=== PATIENT | female | born 1980 | race Caucasian/White ===

== ENCOUNTER 2024-06-11 13:45 | Inpatient (IN) ==
[2024-06-11 14:30] LABS: Basophils # (auto) 0.03 K/uL (0.00-0.20); Basophils % (auto) 0.7 %; Eosinophils # (auto) 0.02 K/uL (0.00-0.50); Eosinophils % (auto) 0.5 %; Hematocrit (blood only) 34.6 % (37.0-47.0); Hemoglobin 11.2 g/dl (12.0-16.0); Immature Granulocytes # (auto) 0.01 K/uL (0.01-0.20); Immature Granulocytes % (auto) 0.2 %; Lymphocytes # (auto) 1.46 K/uL (1.20-3.40); Mean Corpuscular Hemoglobin 27.6 pg (25.0-34.0); Mean Corpuscular Hgb Conc 32.4 g/dL (32.0-36.0); Mean Corpuscular Volume 85.2 fL (80.0-100.0); Mean Platelet Volume 9.9 fL (9.4-12.4); Monocytes # (auto) 0.31 K/uL (0.11-0.59); Monocytes % (auto) 7.2 %; Neutrophils # (auto) 2.46 K/uL (1.40-6.50); Neutrophils % (auto) 57.4 %; Platelet Count 254 K/uL (130-400); RDW Coefficient of Variation 14.9 % (11.5-14.5); RDW Standard Deviation 45.7 fL (36.4-46.3); Red Blood Count 4.06 M/uL (4.20-5.40); White Blood Count 4.29 K/ul (4.8-10.8)
[2024-06-11 14:47] LABS: Albumin Globulin Ratio 1.4 (0.9-2); BUN Creatinine Ratio 9.9 (10-20); Bilirubin,Total 0.4 mg/dl (0.2-1.0); Calcium 8.9 mg/dl (8.6-10.3); Creatinine Clr Calc Pharmacy 66.6 ml/min; Globulin 2.9 gm/dl (2.5-4.0); Potassium 3.7 mmol/L (3.5-5.1); Total Protein 6.9 gm/dl (6.0-8.3)
[2024-06-11 15:14] LABS: Adenovirus PCR Not Detected (NotDetected); Bordetella parapertussis PCR Not Detected (NotDetected); Bordetella pertussis PCR Not Detected (NotDetected); Chlamydia pneumoniae PCR Not Detected (NotDetected); Coronavirus 229E PCR Not Detected (NotDetected); Coronavirus CoV-2 (COVID19)PCR Not Detected (NotDetected); Coronavirus HKU1 PCR Not Detected (NotDetected); Coronavirus NL63 PCR Not Detected (NotDetected); Coronavirus OC43PCR Not Detected (NotDetected); Human Metapneumovirus PCR Not Detected (NotDetected); Influenza A PCR Not Detected (NotDetected); Influenza B PCR Not Detected (NotDetected); Mycoplasma pneumoniae PCR Not Detected (NotDetected); Parainfluenza Virus 1 PCR Not Detected (NotDetected); Parainfluenza Virus 2 PCR Not Detected (NotDetected); Parainfluenza Virus 3 PCR Not Detected (NotDetected); Parainfluenza Virus 4 PCR Not Detected (NotDetected); Respiratory Syncytial VirusPCR Not Detected (NotDetected); Rhinovirus/Enterovirus PCR Not Detected (NotDetected)
[2024-06-11] MEDS: ONDANSETRON INJ 2 MG/ML 2 ML VIAL IV STA ×2 (15:24→18:19)
[2024-06-11] MEDS: SODIUM CHLORIDE 0.9% 1,000 ML IV ONE ×2 (15:24→16:28)
--- NOTE | 2024-06-11 15:42 | Emergency Department Note ---
Impression & Plan Diffuse abdominal pain, Acute dehydration, Vomiting and diarrhea, Hypertension ED Provider Note NAME: FIOR TAVAREZ AGE: 44 SEX: F : 1980 ARRIVES VIA: Walk-In INFORMANT: [Patient] ED PROVIDER(S): [Wai Rojas MD] CHIEF COMPLAINT: Illness HISTORY OF PRESENT ILLNESS: The patient is a 44-year-old female who states that 3 days ago, she had raw tuna. By the time she got home, she had abdominal cramps, she developed vomiting and diarrhea. This has continued throughout the weekend, she cannot keep anything down orally. She presents for evaluation. She has noticed some ongoing left upper quadrant abdominal cramps. She has not had blood in the vomit or the diarrhea. She states that she has not had fever, chills or cough. She has a history of a gastric sleeve, she was concerned because she could not even tolerate Pedialyte. PMHx/PSHx/Social Hx: See Below PHYSICAL EXAM: GENERAL: Patient is in no acute distress. HEENT: No acute trauma, normocephalic atraumatic, mucous membranes moist, no nasal congestion. NECK: No stridor, no adenopathy, no meningismus, trachea is midline. LUNGS: Clear to auscultation bilaterally, no wheeze, no rhonchi, breath sounds equal. HEART: Without murmurs gallops or rubs, regular rate and rhythm. ABDOMEN: Soft, very mildly diffusely tender. No distention. Bowel sounds somewhat hyperactive. EXTREMITIES: No cyanosis, full range of motion of all the joints without pain or difficulty. NEUROLOGIC: Oriented x 3, no acute motor or sensory deficits, no focal weakness. SKIN: No jaundice, no diaphoresis. DIFFERENTIAL DIAGNOSIS: Foodborne or viral illness, electrolyte balance, dehydration, UTI, among others. EMERGENCY DEPARTMENT PROCEDURES: MEDICAL DECISION MAKING: There is no leukocytosis, in fact, the white count is slightly low indicating a potential viral illness. There is a very mild anemia with a hemoglobin of 11.2. There was a normal platelet count. No renal failure or significant electrolyte abnormality. No concerning liver enzyme elevation. No evidence for pancreatitis. Urinalysis showed some dehydration, no obvious infection. Respiratory bio fire was negative. Abdominal and pelvis CT showed a potential ileus, there was no bowel obstruction, no acute surgical pathology. On exam, the patient did not appear toxic, she was not febrile. She had occasional episodes of colicky abdominal pain. Patient received IV saline, 2 L. She was given IV Zofran and IV Toradol. She was given IV Tylenol. She did refuse morphine for pain control as this has caused vomiting in the past. She was ordered for IV Dilaudid for pain control, IV Phenergan for nausea. Eventually, she was given IV Ativan to help with some stress/anxiety. The patient has been here for over 4 hours and she is still in significant discomfort. She does not feel she can take anything in by mouth. She is having bouts of colicky abdominal pain. She does not feel safe for discharge. Given the circumstances, I do think a hospital stay would be warranted. IV fluid hydration, IV pain control and observation is indicated. Currently, her symptoms do seem consistent with either a foodborne or viral illness. I spoke with the patient and case management, the on-call hospitalist was consulted. Of note, the patient's blood pressure has been elevated although, I believe this is primarily from anxiety and stress more so than anything. Her blood pressure did improve with control of her pain and control of her anxiety. Prior/Outside records/notes reviewed: None Imaging/x-ray results per my interpretation: Chronic Medical/Social conditions affecting care: None Care/Management discussed with: Case management, the on-call hospitalist. Level of care consideration(s): After review of the information above and other included data: --I believe the patient requires escalation of care to admission DISPOSITION: Admission Past Med/Surg History Problem List (Updated 06/11/24 @ 20:51 by Wai Rojas MD) Hypertension (Acute) Vomiting and diarrhea (Acute) Acute dehydration (Acute) Diffuse abdominal pain (Acute) Medical History No significant medical problems Social History Smoking Status: Never smoker Second Hand Exposure: No; Do You Dip or Chew Tobacco: No; Tobacco Cessation Education Requested by Patient: No Hx Alcohol Use: Yes Alcohol type: hard liquor Hx Substance Use: No Preferred Language: Serbian Communication Ability: Effective Foreign Exchange Clerk Required: No Beliefs That Will Affect Care: None Current Living Situation: Alone Other Information That Helps Us Care for You: No Feels Safe at Home: Yes Safety Concerns: Feels Safe At This Time Assistive Devices: None Allergies Allergies Allergy/AdvReac Type Severity Reaction Status Date / Time morphine AdvReac Severe Vomiting Unverified 06/11/24 18:04 Home Meds Home Medications Medication Instructions Recorded Confirmed L norgest/E estradiol-E estrad 1 tab PO QAM 06/11/24 06/11/24 0.15 mg-30 mcg (84)/10 mcg(7) tabs,3mos (Ashlyna) Results & Data (ED) Vital Signs Vital Signs - 24 hr 06/11/24 13:56 06/11/24 16:46 06/11/24 17:08 Temperature 36.9 C Temperature Source Temporal Artery Scan Pulse Rate 66 67 Pulse Rate [Apical] 76 Pulse Rhythm [Apical] Regular Pulse Strength [Apical] Normal Respiratory Rate 18 18 Respiratory Effort / Characteristics Non-Labored Spontaneous Non-Labored Spontaneous Respiratory Depth Normal Normal Respiratory Pattern Regular Regular Blood Pressure 180/101 H Blood Pressure [Right Arm] 184/100 H Blood Pressure Mean 127 Blood Pressure Mean [Right Arm] 128 Blood Pressure Position [Right Arm] Lying Pulse Oximetry 100 95 Oxygen Delivery Method Room Air Room Air Sepsis Recent Fever Within 48 Hours No Sepsis New/Unexplained Change in Mental Status N/A Sepsis Action Taken by Nursing No Action Required 06/11/24 17:49 Temperature 36.4 C L Temperature Source Oral Pulse Rate Pulse Rate [Apical] 98 H Pulse Rhythm [Apical] Regular Pulse Strength [Apical] Normal Respiratory Rate 20 Respiratory Effort / Characteristics Non-Labored Spontaneous Respiratory Depth Normal Respiratory Pattern Regular Blood Pressure Blood Pressure [Right Arm] 216/134 H Blood Pressure Mean Blood Pressure Mean [Right Arm] 161 Blood Pressure Position [Right Arm] Lying Pulse Oximetry 100 Oxygen Delivery Method Room Air Sepsis Recent Fever Within 48 Hours Sepsis New/Unexplained Change in Mental Status Sepsis Action Taken by Usp Medications Current Medication List: was personally reviewed by me Laboratory Data Attestation: I reviewed the patient's lab results. 06/11/24 14:15 06/11/24 14:15 Lab Results 06/11/24 06/11/24 06/11/24 Range/Units 14:10 14:15 15:57 WBC 4.29 L (4.8-10.8) K/ul RBC 4.06 L (4.20-5.40) M/uL Hgb 11.2 L (12.0-16.0) g/dl Hct 34.6 L (37.0-47.0) % MCV 85.2 (80.0-100.0) fL MCH 27.6 (25.0-34.0) pg MCHC 32.4 (32.0-36.0) g/dL RDW Std Deviation 45.7 (36.4-46.3) fL RDW Coeff of [place] 14.9 H (11.5-14.5) % Plt Count 254 (130-400) K/uL MPV 9.9 (9.4-12.4) fL Immature Gran % (Auto) 0.2 % Neut % (Auto) 57.4 % Lymph % (Auto) 34.0 % [place] % (Auto) 7.2 % Eos % (Auto) 0.5 % Baso % (Auto) 0.7 % Neut # (Auto) 2.46 (1.40-6.50) K/uL Lymph # (Auto) 1.46 (1.20-3.40) K/uL [place] # (Auto) 0.31 (0.11-0.59) K/uL Eos # (Auto) 0.02 (0.00-0.50) K/uL Baso # (Auto) 0.03 (0.00-0.20) K/uL Immature Gran # (Auto) 0.01 (0.01-0.20) K/uL Sodium 137 (136-145) mmol/L Potassium 3.7 (3.5-5.1) mmol/L Chloride 107 (98-107) mmol/L Carbon Dioxide 23 (21-32) mmol/L Anion Gap 7 (3-11) BUN 9 (6-23) mg/dl Creatinine 0.91 (0.6-1.2) mg/dl Est Cr Clr Drug Dosing 66.6 ml/min eGFR 80.78 BUN/Creatinine Ratio 9.9 L (10-20) Glucose 109 H (70-99(Fasting)) mg/dl Calcium 8.9 (8.6-10.3) mg/dl Magnesium 2.0 (1.7-2.4) mg/dl Total Bilirubin 0.4 (0.2-1.0) mg/dl AST 16 (13-39) U/L ALT 8 (7-52) U/L Alkaline Phosphatase 31 L (34-104) U/L Total Protein 6.9 (6.0-8.3) gm/dl Albumin 4.0 (3.4-5.0) gm/dl Globulin 2.9 (2.5-4.0) gm/dl Albumin/Globulin Ratio 1.4 (0.9-2) Lipase 47 (11-82) U/L Urine Color Dark Yellow Urine Appearance Clear (Clear) Urine pH 5.5 (4.5-7.5) Ur Specific [place] 1.026 (1.000-1.030) Urine Protein Trace H (Negative) Urine Glucose (UA) Negative (Negative) Urine Ketones Trace H (Negative) Urine Blood Negative (Negative) Urine Nitrite Negative (Negative) Urine Bilirubin Negative (Negative) Urine Urobilinogen Negative (Negative) Ur Leukocyte Esterase Negative (Negative) Urine WBC (Auto) 0-5 (0-5) /hpf Urine RBC (Auto) 0-2 (0-2) /hpf U Hyaline Cast (Auto) 3-5 H (0-2) /lpf U Epithel Cells (Auto) 6-10 H (0-2) /hpf Urine Bacteria (Auto) 1+ H (None Seen) Urine Mucus Present A (None Prsent) Adenovirus (PCR) Not Detected (NotDetected) B. pertussis DNA (PCR) Not Detected (NotDetected) B.parapertussis DNA PCR Not Detected (NotDetected) C. pneumoniae DNA (PCR) Not Detected (NotDetected) Coronavirus OC43 (PCR) Not Detected (NotDetected) Coronavirus HKU1 (PCR) Not Detected (NotDetected) Coronavirus 229E (PCR) Not Detected (NotDetected) SARS-CoV-2 (PCR) Not Detected (NotDetected) Coronavirus NL63 (PCR) Not Detected (NotDetected) Human Metapneumovir PCR Not Detected (NotDetected) Influenza Type A (PCR) Not Detected (NotDetected) Influenza Type B (PCR) Not Detected (NotDetected) M. pneumoniae (PCR) Not Detected (NotDetected) Parainfluenza 1 (PCR) Not Detected (NotDetected) Parainfluenza 2 (PCR) Not Detected (NotDetected) Parainfluenza 3 (PCR) Not Detected (NotDetected) Parainfluenza 4 (PCR) Not Detected (NotDetected) RSV (PCR) Not Detected (NotDetected) Entero/Rhino (PCR) Not Detected (NotDetected) Administered Medications Discontinued Medications Hydromorphone HCl (Hydromorphone Inj 0.5 Mg/0.5 Ml Syr) 0.5 mg IV NOW STA Stop: 06/11/24 18:10 Last Admin: 06/11/24 18:55 Dose: 0.5 mg Documented By: SHEREE Sodium Chloride (Nss) 1,000 mls @ 999 mls/hr IV .Q1H1M ONE Stop: 06/11/24 15:58 Last Infusion: 06/11/24 17:19 Dose: Infused Documented By: Admin: 06/11/24 15:24 Dose: 999 mls/hr Documented By: BALA Sodium Chloride (Nss) 1,000 mls @ 999 mls/hr IV .Q1H1M ONE Stop: 06/11/24 16:32 Last Infusion: 06/11/24 19:03 Dose: Infused Documented By: Admin: 06/11/24 16:28 Dose: 999 mls/hr Documented By: CAROLYN Promethazine HCl (Phenergan) 6.25 mg in 50.25 mls @ 201 mls/hr IV NOW STA Stop: 06/11/24 17:20 Last Admin: 06/11/24 17:18 Dose: Not Given Documented By: SHEREE Acetaminophen (Ofirmev) 1,000 mg in 100 mls @ 400 mls/hr IV NOW STA Stop: 06/11/24 18:23 Last Admin: 06/11/24 18:51 Dose: 400 mls/hr Documented By: SHEREE Promethazine HCl (Phenergan) 6.25 mg in 50.25 mls @ 201 mls/hr IV NOW STA Stop: 06/11/24 18:25 Last Infusion: 06/11/24 19:03 Dose: Infused Documented By: Admin: 06/11/24 18:20 Dose: 201 mls/hr Documented By: SHEREE Ioversol (Optiray 320 100ml) 94 ml IV ONCE ONE Stop: 06/11/24 17:34 Last Admin: 06/11/24 17:33 Dose: 94 ml Documented By: JACOBO Ketorolac Tromethamine (Ketorolac Tromethamine 15 Mg/Ml Vial) 10 mg IV NOW ONE Stop: 06/11/24 15:33 Last Admin: 06/11/24 15:55 Dose: 10 mg Documented By: SHEREE Lorazepam (Lorazepam 2 Mg/1 Ml Vial) 0.5 mg IV NOW STA Stop: 06/11/24 18:11 Last Admin: 06/11/24 18:19 Dose: 0.5 mg Documented By: SHEREE Morphine Sulfate (Morphine Sulfate 4 Mg/Ml 1 Ml Carp\Vial) 4 mg IV NOW STA Stop: 06/11/24 17:07 Last Admin: 06/11/24 17:18 Dose: Not Given Documented By: SHEREE Ondansetron HCl (Ondansetron Inj 2 Mg/Ml 2 Ml Vial) 4 mg IV NOW STA Stop: 06/11/24 14:59 Last Admin: 06/11/24 15:24 Dose: 4 mg Documented By: BALA Ondansetron HCl (Ondansetron Inj 2 Mg/Ml 2 Ml Vial) 4 mg IV NOW STA Stop: 06/11/24 18:10 Last Admin: 06/11/24 18:19 Dose: 4 mg Documented By: SHEREE Imaging Data Radiologist's Impression: Abdomen/Pelvis CT 06/11/24 17:06 Clinical History: Nausea and vomiting Technique: Axial computed tomography images were obtained of the abdomen and pelvis after the administration of intravenous contrast. No prior CT is available for comparison. Findings: The liver is overall of normal size, attenuation, and contour with no sign of cirrhosis or significant fatty infiltration. No liver mass lesion is seen. The portal vein is patent. The gallbladder has been removed. No bile duct dilatation is noted. The spleen is of normal size. No focal splenic lesion is evident. The pancreas appears normal with no sign of acute or chronic pancreatitis and no mass lesion noted. The pancreatic duct is of normal caliber. The adrenal glands appear unremarkable. No definite renal or proximal ureteral calculi are seen on this contrast-enhanced study. There is no hydronephrosis or perinephric stranding. No renal mass lesion is identified. The aorta is of normal caliber. No abdominal adenopathy is seen. There is a small hiatal hernia. Postsurgical changes are seen involving the stomach. There are mildly prominent loops of bowel that could be due to ileus. There is no definite sign of small bowel obstruction. The colon appears unremarkable. The appendix appears normal also. No free intraperitoneal air is identified. There is a small amount of free pelvic fluid No distal ureteral or bladder calculi are seen. No bladder mass lesion is evident. The iliac arteries are of normal caliber. No pelvic adenopathy is noted. The uterine endometrium appears mildly thickened and heterogeneous The lungs bases appear clear. No fracture is identified. No focal osseous lesion is seen Impression: 1. Small amount of free pelvic fluid, which may be physiologic 2. Mildly thickened and heterogeneous endometrium. A pelvic ultrasound could be considered for further evaluation 3. Possible mild ileus Electronically signed by Brayan Briseno 06-11-2024 6:00 PM Discharge Plan Visit Data Chief Complaint: Illness Stated Complaint: POSSIBLE FOOD POISONING-VOMITING, DIARRHEA, CRAMPS ED Provider: Wai Rojas Discharge Problem: Diffuse abdominal pain, Acute dehydration, Vomiting and diarrhea, Hypertension Patient Disposition: Admitted As Inpatient Condition: Fair Discharge Instructions Interventions: ED Discharge Assessment Last Done: 06/11/24 19:26 Discharge Problem: Hypertension Qualifiers: Hypertension type: unspecified Qualified Code(s): I10 - Essential (primary) hypertension
[2024-06-11] MEDS: KETOROLAC TROMETHAMINE 15 MG/ML VIAL IV ONE (15:55)
[2024-06-11 16:19] LABS: Appearance Urine Clear (Clear); Bacteria Urine Automated 1+ (None Seen); Bilirubin Urine Negative (Negative); Blood Urine Negative (Negative); Color Urine Dark Yellow; Glucose Urine UA Negative (Negative); Ketones Urine Trace (Negative); Leukocyte Esterase Urine Negative (Negative); Mucus Urine Present (None Prsent); Nitrite Urine Negative (Negative); Protein Urine Trace (Negative); RBC Urine Automated 0-2 /hpf (0-2); Specific Gravity Urine 1.026 (1.000-1.030); Urobilinogen Urine Negative (Negative); WBC Urine Automated 0-5 /hpf (0-5); pH Urine 5.5 (4.5-7.5)
[2024-06-11] MEDS: MoRPHine SULFATE 4 MG/ML 1 ML CARP\\VIAL IV STA (17:18)
[2024-06-11] MEDS: PROMETHAZINE 6.25 MG/50.25 ML BAG IV STA ×2 (17:18→18:20)
[2024-06-11] MEDS: OPTIRAY 320 100ml IV ONE (17:33)
--- NOTE | 2024-06-11 18:01 | CT Scan Report ---
Clinical History: Nausea and vomiting Technique: Axial computed tomography images were obtained of the abdomen and pelvis after the administration of intravenous contrast. No prior CT is available for comparison. Findings: The liver is overall of normal size, attenuation, and contour with no sign of cirrhosis or significant fatty infiltration. No liver mass lesion is seen. The portal vein is patent. The gallbladder has been removed. No bile duct dilatation is noted. The spleen is of normal size. No focal splenic lesion is evident. The pancreas appears normal with no sign of acute or chronic pancreatitis and no mass lesion noted. The pancreatic duct is of normal caliber. The adrenal glands appear unremarkable. No definite renal or proximal ureteral calculi are seen on this contrast-enhanced study. There is no hydronephrosis or perinephric stranding. No renal mass lesion is identified. The aorta is of normal caliber. No abdominal adenopathy is seen. There is a small hiatal hernia. Postsurgical changes are seen involving the stomach. There are mildly prominent loops of bowel that could be due to ileus. There is no definite sign of small bowel obstruction. The colon appears unremarkable. The appendix appears normal also. No free intraperitoneal air is identified. There is a small amount of free pelvic fluid No distal ureteral or bladder calculi are seen. No bladder mass lesion is evident. The iliac arteries are of normal caliber. No pelvic adenopathy is noted. The uterine endometrium appears mildly thickened and heterogeneous The lungs bases appear clear. No fracture is identified. No focal osseous lesion is seen Impression: 1. Small amount of free pelvic fluid, which may be physiologic 2. Mildly thickened and heterogeneous endometrium. A pelvic ultrasound could be considered for further evaluation 3. Possible mild ileus Electronically signed by Brayan Briseno 06-11-2024 6:00 PM
[2024-06-11] MEDS: LORazepam 2 MG/1 ML VIAL IV STA (18:19)
[2024-06-11] MEDS: ACETAMINOPHEN 1,000 MG/100 ML VIAL IV STA (18:51)
[2024-06-11] MEDS: HYDROmorphone INJ 0.5 MG/0.5 ML SYR IV STA (18:55)
[2024-06-11] MEDS ORDERED: PIPERACILLIN/TAZOBACTAM 4.5 GM/100 ML BAG IV SCH (19:00)
[2024-06-11] MEDS ORDERED: PROMETHAZINE 12.5 MG/50.5 ML BAG IV PRN (19:00)
[2024-06-11] MEDS ORDERED: LORazepam 2 MG/1 ML VIAL IV PRN (19:13)
--- NOTE | 2024-06-11 20:26 | History & Physical Report ---
Date of Service June 11, 2024 Assessment & Plan (1) Gastroenteritis: (2) Acute dehydration: (3) Hypertension: Plan: Patient is a 44-year-old female with history of diabetes, hypertension, history of gastric bypass surgery, presenting with nausea, vomiting, diarrhea since Tuesday. Acute gastroenteritis with possible Mild Ileus Acute dehydration Likely from food poisoning Stool PCR, C. difficile ordered Blood cultures ordered Given severity of presentation, will start empiric Zosyn IV IV fluids, n.p.o. as needed Dilaudid for pain, as needed antiemetics Hypertensive Urgency likely secondary to pain, nausea has history of hypertension but not on maintenance medications PRN Hydralazine Chronic medical problems: Prediabetes-not on any medications Status post gastric bypass surgery DVT prophylaxis SCDs for now Lovenox once Elevated blood pressure resolves Full COde Disposition lives at home plan of care discussed with patient in detail and at length all questions answered she is understanding, agreeable, comfortable with the plan of care Admission and Anticipated Discharge Date Admission Date: June 11, 2024 History of Present Illness Chief Complaint: Nausea, vomiting, diarrhea since Tuesday Primary Care Provider: Gio Wiseman DO Patient is a 44-year-old female with history of diabetes, hypertension, history of gastric bypass surgery, presenting with nausea, vomiting, diarrhea since Tuesday. Last Tuesday evening, the patient had some raw tuna for dinner and 2 to 3 hours later experienced multiple episodes of vomiting and nonbloody diarrhea associated with generalized abdominal cramping. Symptoms continued through the weekend, with up to 3-5 episodes of vomiting and diarrhea per day. She also experienced chills, and a poor oral intake due to severe nausea. She could not even keep fluids down. At the ER, blood pressure 180/100, heart rate 66, respiratory rate 18, afebrile, 99% room air. CT abdomen pelvis showing mild ileus. She was given IV fluid boluses, Dilaudid, Zofran, Phenergan, still having some nausea and abdominal pain. On exam, patient seen resting in bed, not in distress. States nausea starting to improve, but still having some abdominal discomfort. No headache, dizziness, chest pain, shortness of breath, or any other symptoms. Allergies Allergy/AdvReac Type Severity Reaction Status Date / Time morphine AdvReac Severe Vomiting Unverified 06/11/24 18:04 Home Medications Medication Instructions Recorded Confirmed Type L norgest/E estradiol-E estrad 1 tab PO QAM 06/11/24 06/11/24 History 0.15 mg-30 mcg (84)/10 mcg(7) tabs,3mos (Ashlyna) Past Med/Surg History Problem List (Updated 06/11/24 @ 22:34 by Shiraz Nye MD) Gastroenteritis Hypertension (Acute) Vomiting and diarrhea (Acute) Acute dehydration (Acute) Diffuse abdominal pain (Acute) Medical History No significant medical problems Social History Smoking Status: Never smoker Second Hand Exposure: No; Do You Dip or Chew Tobacco: No; Tobacco Cessation Education Requested by Patient: No Hx Alcohol Use: Yes Alcohol type: hard liquor Hx Substance Use: No Preferred Language: Iraqi Communication Ability: Effective 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: No Beliefs That Will Affect Care: None Current Living Situation: Alone Other Information That Helps Us Care for You: No Feels Safe at Home: Yes Safety Concerns: Feels Safe At This Time Assistive Devices: None Review of Systems Review of Systems: all noted and negative except for above Physical Exam Physical Exam: General- oriented x 3, not in distress, speaks in sentences with no effort or accessory muscle use Head- atraumatic Eyes- PERRL, EOMI, anicteric ENT- oropharynx clear (+) dry oral mucosa Neck- supple, no JVD, no adenopathy, no thyromegaly; carotids +2/2, no bruits appreciated Lungs- clear to auscultation bilaterally, no rales/wheezes Heart- normal rate, regular rhythm; no murmur, no gallop, no rub appreciated Abdomen- normal bowel sounds, nondistended, soft, mild tenderness LUQ, no masses or hepatosplenomegaly Extremities- no pretibial edema, no calf tenderness; peripheral pulses intact Neuro- alert, oriented x 3; CN 2-12 grossly intact; motor 5/5 bilaterally;sensation 100% on all extremities; no other gross focal neurologic deficits Skin- warm & dry Results & Data Results & Data Vital Signs (Past 12 Hours) Vital Signs Temp Pulse Pulse Resp BP BP Pulse Ox 06/11/24 19:19 59 L 18 146/95 H 97 06/11/24 17:49 36.4 C L 98 H 20 216/134 H 100 06/11/24 17:08 67 06/11/24 16:46 76 18 184/100 H 95 06/11/24 13:56 36.9 C 66 18 180/101 H 100 O2 Del Method 06/11/24 19:19 Room Air 06/11/24 17:49 Room Air 06/11/24 17:08 06/11/24 16:46 Room Air 06/11/24 13:56 Room Air all noted and reviewed including below Code Status & VTE Plan VTE Prophylaxis Plan VTE Prophylaxis will be ordered: Yes (3) Hypertension Hypertension type: unspecified Qualified Code(s): I10 - Essential (primary) hypertension
[2024-06-11] MEDS: NSS + 20MEQ KCL 20 MEQ/1,000 ML BAG IV SCH (21:14)
[2024-06-11] MEDS: PIPERACILLIN/TAZOBACTAM 4.5 GM/100 ML BAG IV STA (21:20)
[2024-06-11] MEDS: ACETAMINOPHEN 1,000 MG/100 ML VIAL IV SCH (21:29)
--- OUTSIDE RECORDS SUMMARY | 2024-06-12 00:40 | External Medical Summary | Summary of Care ---
Author Name Unknown Organization [facility] Address [address] [place] [place] [address] Phone [phone] Care Team Providers Care Hospice Clinical Marketer Name Role Phone Gio Wiseman Primary Care Provide r Encounter Details Date Type Department Care Team (Late st Contact Info) Description 04/24/2024 Population Health External Data Unspecified Department Allergies Active Allergy Reactions Criticality Noted Date Comments Morphine And Codeine Other (Please comment) GI Intolerance documented as of this encounter (statuses as of 04/24/2024) Medications Fntsmkobgc-ILB-Fl ff-Codeine (FIORINAL/CODEINE #3) 41-452-11-30 MG Capsule capsule: 38-11-659-40 mg 1 capsule daily as needed by mouth for migraine 30 Cap 3 8 Active Additional Information Patient not taking.Reported on 01/24/2023 Emgality 120 MG/ML Subcutaneous Solution Auto-injector (galcanezumab-gnl m) Inject 1 mL under the skin Every Month. 1 mL 11 0 Active Additional Information Patient not taking.Reported on 01/02/2023 metFORMIN HCl 500 MG Oral Tablet (Glucophage) Take 1 Tablet by mouth 2 times a day with morning and evening meals. 180 Tablet 3 1 Active Additional Information Patient not taking.Reported on 01/02/2023 Spironolactone 100 MG Oral Tablet (Aldactone) Take 1 Tablet by mouth 2 times a day. 60 Tablet 5 1 Active Additional Information Patient not taking.Reported on 01/24/2023 buPROPion HCl ER (SR) 150 MG Oral Tablet Extended Release 12 Hour (Wellbutrin SR) Take 1 Tablet by mouth in the morning and 1 Tablet before bedtime. 60 Tablet 5 3 Active Additional Information Patient not taking.Reported on 01/24/2023 Ferrous Sulfate 325 (65 Fe) MG Oral Tablet (Feosol) Take 1 Tablet by mouth in the morning. 90 Tablet 4 3 Active Norethindrone 0.35 MG Oral TabletIndications :Initiation of oral contraception Take 1 Tablet by mouth in the morning. 90 Tablet 4 4 Active Azithromycin 250 MG Oral Tablet (Zithromax Z-Vicente) Take two tablets by mouth on first day, then 1 tablet daily until gone 6 Tablet 4 Active Benzonatate 100 MG Oral Capsule Take 1 Capsule by mouth 3 times a day as needed for Cough. 30 Capsule 1 4 Active documented as of this encounter (statuses as of 04/24/2024) Active Problems Problem Noted Date Diagnosed Date Hirsutism 03/03/2021 Pre-diabetes 02/18/2016 Dyspnea on exertion 03/22/2012 Chronic daily headache 12/14/2011 Medication overuse headache 12/14/2011 Migraine without aura 12/14/2011 Surveillance of previously p rescribed intrauterine contraceptive device 01/18/2011 Overview (04/09/2014): [facility] outside office 02/2011 OBESITY, BMI 30-34 (SEE ACTUAL BMI) 06/26/2009 Overview (06/26/2009): Per Obesity Taxonomy HTN, GOAL BELOW 140/90 02/20/2009 Overview (02/20/2009): Modified per HTN protocol #16. Allergic rhinitis 09/04/2008 documented as of this encounter (statuses as of 04/24/2024) Resolved Problems Problem Noted Date Diagnosed Date Resolved Date ADVANCE DIRECTIVE INFORMATION 12/09/2017 02/06/2024 Overview (12/09/2017): No, Advance Directive brochure offered , patient declined. Pt declined Advance Directive brochure Morbid obesity, BMI not known 04/29/2009 06/26/2009 Overview (06/26/2009): Per Obesity Taxonomy HTN, goal to be determined 09/04/2008 1 04/22/2008 Overview (02/20/2009): Modified per HTN protocol #16. Other tenosynovitis of hand and wrist 12/23/2006 09/04/2008 Abnormal maternal glucose to lerance, complicating , childbirth, or the puerperium, unspecified as to episode of care 08/04/2006 09/04/2008 with poor reproductive history 05/26/2006 09/04/2008 Overview (01/04/2019): ICD-10 update of inactive term Benign essential hypertension, antepartum 05/26/2006 09/04/2008 Overview (07/21/2016): ICD-10 Update of inactive term Supervision of other high-risk 04/12/2006 09/04/2008 Overview (07/08/2015): ICD-10 update of inactive term documented as of this encounter (statuses as of 04/24/2024) Immunizations Name Administration Dates Next Due Seasonal Influenza Vac., MDV , IM, 0.5 mL (Fluzone) 01/16/2007 Seasonal Influenza, PF, 6 M & above, IM , (FluLaval or Fluzone) 08/02/2019(Deferred: Patient Refused - Made Brennan Cronin) TDAP, Age 7 and older, IM (Adacel) 10/15/2016, documented as of this encounter Social History Tobacco Use Types Packs/Day Years Used Date Smoking Tobacco: Never Smokeless Tobacco: Never Alcohol Use Standard Drinks/Week Comments Yes 0 (1 standard drink = 0.6 oz pur e alcohol) Beer - occasionally PHQ-2 Answer Date Recorded PHQ Adult Total Score 0 08/18/2023 Hunger Vital Sign Answer Date Recorded Within the past 12 months, y ou worried that your food would run out before you got the money to buy more. Never true 08/18/19 24 Within the past 12 months, t he food you bought just didn't last and you didn't have money to get more. Never true 08/18/2023 Childcare Answer Date Recorded Do you feel overwhelmed with taking care of a child, family member or friend? No 08/18/2023 Does your family need help f inding childcare? (Household - for ages 0-17 years) Not on file 08/18/2023 Clothing Answer Date Recorded Have you been unable to get clothing when it was really needed? No 08/18/2023 Is your family able to get c lothes or diapers when needed? (Household - for ages 0-17 years) Not on file 08/18/2023 Personal Safety Answer Date Recorded Do you feel unsafe or have concerns for your saf ety? No 08/18/2023 Do you have concerns for you r family's safety? (Household - for ages 0-17 years) Not on file 08/18/2023 Utilities Answer Date Recorded Do you have trouble paying y our heating, water, or electric bill? No 08/18/2023 Is your family able to pay t he heat, water, or electric bill? (Household - for ages 0-17 years) Not on file 08/18/2023 Does your family have access to good internet? (Household - for ages 0-17 years) Not on file 08/18/2023 Employment Status Answer Date Recorded Are you unemployed or without regular income? No 08/18/2023 Does the household have a re lar source of income? (Household - for ages 0-17 years) Not on file 08/18/2023 Social Connections Answer Date Recorded How often do you feel lonely or isolated from th ose around you? Never 08/18/2023 Financial Resource Strain Answer Date R ecorded Do you have any trouble payi ng for your medications, or do you think you might in the future? No 08/18/2023 Does your family have troubl e paying for medicine? (Household - for ages 0-17 years) Not on file 08/18/2023 Transportation Needs Answer Date Record ed READ ONLY Do you have troubl e getting a ride to medical visits or work? Never True 08/18/2023 Does your family have a hard time getting a ride to doctors visits? (Household - for ages 0-17 years) Not on file 08/18/2023 Has lack of transportation k ept you from medical appointments, meetings, work, or from getting things needed for daily living? Check all that apply. (Adult - for ages 18 years and over) Not on file 08/18/2023 Do you (or your family) have trouble finding or paying for a ride (transportation)? (Household - for ages 0-17 years) Not on file 08/18/2023 Housing Stability Answer Date Recorded Do you currently live in a s helter or have no steady place to sleep at night? No 08/18/2023 READ ONLY Do you think you a re at risk of becoming homeless? No 08/18/2023 Does your family worry about paying for your home or becoming homeless? (Household - for ages 0-17 years) Not on file 0 08/18/2023 Are you homeless or worried that you might be in the future? (Adult - for ages 18 years and over) Not on file Are you (or your family) jaylan eless or worried that you might be in the future? (Household - for ages 0-17 years) Not on file Food Insecurity Answer Date Recorded Do you need food for this week? No 08/18/2023 Are you able to get enough f ood for your family? (Household - for ages 0-17 years) Not on file 08/18/2023 Does your family need food t his week? (Household - for ages 0-17 years) Not on file 08/18/2023 Do you always have enough fo od for your family? (Household - for ages 0-17 years) Not on file 08/18/2023 Comments No Sex and Gender Information Value Date Recorded Sex Assigned at Female 01/20/2023 5:34 PM EDT Legal Sex Female 5:44 AM EST Gender Identity Female 01/20/2023 5:34 PM EDT Sexual Orientation Straight 01/20/2023 5: 34 PM EDT Occupation Industry Job Start Date Job End Date Unemployed Not on file Not on file Not on file documented as of this encounter Functional Status * Are you deaf or do you have serious difficulty hearing? Answer Date of Assessment Author No 08/02/2019 2:05 AM Suresh Barnhart RN * Are you blind or do you have serious difficulty seeing, even when wearing glasses? Answer Date of Assessment Author No 08/02/2019 2:05 AM Suresh Barnhart RN * Do you have serious difficulty walking or climbing stairs? (5 years old or older) Answer Date of Assessment Author No 08/02/2019 2:05 AM Suresh Barnhart RN * Do you have difficulty dressing or bathing? (5 years old or older) Answer Date of Assessment Author No 08/02/2019 2:05 AM Suresh Barnhart RN * Because of a physical, mental, or emotional condition, do you have difficulty doing errands alone such as visiting a doctors office or shopping? (15 years old or older) Answer Date of Assessment Author No 08/02/2019 2:05 AM Suresh Barnhart RN documented as of this encounter Mental Status * Because of a physical, mental, or emotional condition, do you have serious difficulty concentrating, remembering, or making decisions? (5 years old or older) Answer Entry Date Author No 08/02/2019 2:05 AM Suresh Barnhart RN documented in this encounter Plan of Treatment Health Maintenance Due Date Last Done Comments Albumin/Creatinine Ratio 01/04/2000 Hepatitis B Vaccine (1 of 3 - 19+ 3-dose series) 2001 HbA1c 03/20/2022 03/20/2021, 02/04, 11/27/2019, Additional history exists GFR 04/03/2022 04/03/2021, 03/04, 03/03/2021, Additional history exists COVID-19 Vaccine ( season) 2023 Influenza Vaccine (FLU shot) (#1) 2023 01/16/2007 Mammogram 04/27/2024 04/27/2023, 05/05, 05/22/2010 Depression Screening 08/17/2024 08/18/2023 Pap Smear 01/24/2026 01/24/2023, 03/04, 12/09/2017, Additional history exists Lipid Panel 03/20/2026 03/20/2021, 11/3 , 04/09/2020, Additional history exists DTap/Tdap Vaccines (3 - Td or Tdap) 10/15/2026 10/15/2016, 10/11/2005 Cervical Cancer Screening 01/25/2028 HPV/Co-Test 01/25/2028 01/24/2023 HPV (Gardasil) Vaccine Aged Out No lo nger eligible based on patient's age to complete this topic MENINGOCOCCAL (MENACTRA/MENVEO) Aged Out No longer eligible based on patient's age to complete this topic Pneumococcal Vaccine: Pediatrics (0 to 5 Years) and At-Risk Patients (6 to 18 Years and 19+ Years) Aged Out No longer eligib le based on patient's age to complete this topic documented as of this encounter Medical Devices Not on filedocumented as of this encounter Advance Directives * Full Code (Latest Code Status on File) Date Activated Date Inactivated Comments 08/02/2019 12:28 AM 08/02/2019 6:37 PM Question Answer Comments Discussion of Advance Directives occurred with: Not Discussed * Full Code Date Activated Date Inactivated Comments 07/24/2015 10:21 AM 07/24/2015 4:30 PM This order reflects the patients wishes and were consensually agreed upon. Care Teams Hospice Clinical Marketer Relationship Specialty Start Date End Date Gio Wiseman DO [address] [place] [address] PCP - General 04/20/01 documented as of this encounter
[2024-06-12] MEDS: HYDROmorphone INJ 0.5 MG/0.5 ML SYR IV PRN (01:20)
[2024-06-12] MEDS: PIPERACILLIN/TAZOBACTAM 4.5 GM/100 ML BAG IV SCH (01:20)
[2024-06-12 06:17] LABS: Hematocrit (blood only) 28.9 % (37.0-47.0); Hemoglobin 9.3 g/dl (12.0-16.0); Mean Corpuscular Hemoglobin 27.8 pg (25.0-34.0); Mean Corpuscular Hgb Conc 32.2 g/dL (32.0-36.0); Mean Corpuscular Volume 86.5 fL (80.0-100.0); Mean Platelet Volume 10.2 fL (9.4-12.4); Platelet Count 183 K/uL (130-400); RDW Coefficient of Variation 14.9 % (11.5-14.5); RDW Standard Deviation 46.8 fL (36.4-46.3); Red Blood Count 3.34 M/uL (4.20-5.40); White Blood Count 4.48 K/ul (4.8-10.8)
[2024-06-12 06:43] LABS: Albumin Globulin Ratio 1.4 (0.9-2); BUN Creatinine Ratio 6.7 (10-20); Bilirubin,Total 0.4 mg/dl (0.2-1.0); Creatinine Clr Calc Pharmacy 70.2 ml/min; Globulin 2.1 gm/dl (2.5-4.0); Magnesium 1.9 mg/dl (1.7-2.4); Phosphorus 3.1 mg/dl (2.5-4.9); Potassium 3.6 mmol/L (3.5-5.1); Total Protein 5.1 gm/dl (6.0-8.3)
[2024-06-12 07:12] LABS: Basophils # (auto) 0.03 K/uL (0.00-0.20); Basophils % (auto) 0.7 %; Eosinophils # (auto) 0.06 K/uL (0.00-0.50); Eosinophils % (auto) 1.3 %; Lymphocytes # (auto) 2.65 K/uL (1.20-3.40); Lymphocytes % (auto) 59.2 %; Monocytes # (auto) 0.38 K/uL (0.11-0.59); Monocytes % (auto) 8.5 %; Neutrophils # (auto) 1.36 K/uL (1.40-6.50); Neutrophils % (auto) 30.3 %; RBC Morphology Unremarkable
--- NOTE | 2024-06-12 08:09 | XRay Report ---
EXAM: XR KUB/Abdomen 1 view CLINICAL HISTORY: mild ileus, ff up TECHNIQUE: Radiograph of kub/abdomen was acquired. COMPARISON: No FINDINGS: Non-obstructive, non-specific bowel gas pattern. Gaseous distension of bowel loops noted. No significant air fluid levels. No evidence of air under diaphragm. No obvious radio opacity overlying kidneys/ureters/urinary bladder. No obvious organomegaly. Hyperdense content within the urinary bladder shadow, likely excreted contrast. Bony shadows appear unremarkable. Few small surgical holli noted in bilateral paravertebral regions. IMPRESSION: 1. No acute abdominal abnormality. 2. Gaseous distension of bowel loops. No significant air fluid levels. Electronically signed by Nitish Jacques 06-12-2024 08:08 AM
[2024-06-12] MEDS: ONDANSETRON INJ 2 MG/ML 2 ML VIAL IV PRN (08:45)
[2024-06-12] MEDS: POTASSIUM CHLORIDE CRTAB 20 MEQ TABCR PO STA (10:49)
--- NOTE | 2024-06-12 13:51 | Hospitalist Progress Note ---
Date of Service June 12, 2024 Assessment & Plan (1) Gastroenteritis: (2) Acute dehydration: (3) Hypertension: Plan: Patient is a 44-year-old female with history of diabetes, hypertension, history of gastric bypass surgery, presenting with nausea, vomiting, diarrhea since Tuesday. She is being managed for the following: Acute gastroenteritis with possible Mild Ileus Acute dehydration Rule out infection Likely from food poisoning Reports improvement in N, V, D, Belly pain Stool PCR, C. difficile ordered, remains uncollected due to no BM while in here. Blood cultures pending, will await 48 hrs before deciding on dc'ing atb. Pt denies Fever/sore throat/pain or burn w/ passing urine/open wounds Given severity of presentation, pt was started on empiric Zosyn IV, continue IV fluids, start clears, monitor for belly pain, repeat KUB XR in AM. c/w Pedialyte solution at bedside. as needed Dilaudid for pain, as needed antiemetics Hypertensive Urgency likely secondary to pain, nausea. BP has improved. has history of hypertension but not on maintenance medications PRN Hydralazine Chronic medical problems: Prediabetes-not on any medications Status post gastric bypass surgery DVT prophylaxis: SCDs, ambulation. Full Code Disposition: lives at home, dc once bl cx results for 48 hr is out. c/w atb until then. Admission and Anticipated Discharge Date Admission Date: June 11, 2024 Subjective Patient was seen and examined at bedside. Patient was lying in bed, on room air, NAD, resting comfortably. Patient reports improvement in her nausea, vomiting, abdominal pain, diarrhea. Patient has not moved bowel after coming to the hospital, patient reports abdominal pain 2/10 at present which is significant improvement since presentation. Patient reports having sepsis in the past with subtle signs and symptoms such as teeth cluttering and hence her blood culture was sent at admission day after she had similar episode in the evening of presentation. Physical Exam Physical Exam: General- oriented x 3, not in distress, speaks in sentences with no effort or accessory muscle use Head- atraumatic Eyes- PERRL, EOMI, anicteric ENT- oropharynx clear moist oral mucosa Neck- supple, no JVD, no adenopathy, no thyromegaly; carotids +2/2, no bruits appreciated Lungs- clear to auscultation bilaterally, no rales/wheezes Heart- normal rate, regular rhythm; no murmur, no gallop, no rub appreciated Abdomen- normal bowel sounds, nondistended, soft, mild tenderness LUQ, no masses or hepatosplenomegaly Extremities- no pretibial edema, no calf tenderness; peripheral pulses intact Neuro- alert, oriented x 3; CN 2-12 grossly intact; motor 5/5 bilaterally;sensation 100% on all extremities; no other gross focal neurologic deficits Skin- warm & dry Results & Data Results & Data Vital Signs (Past 12 Hours) Vital Signs Temp Pulse Resp BP Pulse Ox O2 Del Method 06/12/24 11:14 36.7 C 59 L 17 126/82 96 Room Air 06/12/24 07:39 36.5 C 61 19 137/85 98 Room Air 06/12/24 03:38 36.7 C 55 L 18 112/70 97 Room Air (3) Hypertension Hypertension type: unspecified Qualified Code(s): I10 - Essential (primary) hypertension
[2024-06-12] MEDS: oxyCODONE HCL IR 5 MG TAB (IMMEDIATE RELEASE) PO PRN (14:57)
--- NOTE | 2024-06-12 15:34 | Surgery Consultation ---
Date of Consultation June 12, 2024 Assessment & Plan (1) Ileus: Patient with c/o of nausea, vomiting, and diarrhea that started last Tuesday06/09/24 after eating tuna. She reports her symptoms were severe and she had been unable to have any oral intake. Prior to coming to the ER she said she drank half a bottle of pepto-bismol to off set her diarrhea. A CT scan from 06/11/24 is showing concern for a possible ileus. A KUB today is showing " Non-obstructive, non-specific bowel gas pattern. Gaseous distension of bowel loops noted. " On exam the patient is in NAD, resting in bed. pt denies flatus, bm, vomiting, since arrival to hospital. No elevation in WBC , drop in h/h noted possible dilutional? biofire negative , stool cultures are ordered. VSS, afebrile, BP 126/82. Abd is non distended, soft , TTP LUQ. Recommending discontinuing narcotic pain medication, continue with Tylenol or ibuprofen. OOB ambulate in halls as able, IV fluids for hydration, Sips/chips for now, pt denies appetite at present KUB is already ordered for tomorrow No acute surgical intervention indicated at this time Will follow up on kUB in AM History of Present Illness Reason for Consultation: ileus Requesting Physician: Dr Varela Attending Physician: Kasandra Varela MD History of Present Illness Patient is a pleasant 44 yo female with no significant PMH that presented to the [facility] ER 06/11/24 with c/o of nausea, vomiting, and diarrhea that started last Tuesday06/09/24 after eating tuna. She reports her symptoms were severe and she had been unable to have any oral intake. Prior to coming to the ER she said she drank half a bottle of pepto-bismol to off set her diarrhea. A CT scan from 06/11/24 is showing concern for a possible ileus. The patient was admitted to the hospital and has been getting IV fluids, analgesics, and Zosyn. She reports a surgical hx of lap darnell and gastric sleeve. She denies prior ileus/bowel obstructions, or GI symptoms as above. Allergies Allergy/AdvReac Type Severity Reaction Status Date / Time morphine AdvReac Severe Vomiting Unverified 06/11/24 18:04 Home Medications Medication Instructions Recorded Confirmed Type L norgest/E estradiol-E estrad 1 tab PO QAM 06/11/24 06/11/24 History 0.15 mg-30 mcg (84)/10 mcg(7) tabs,3mos (Ashlyna) Patient History Medical History No significant medical problems Social History Smoking Status: Never smoker Second Hand Exposure: No; Do You Dip or Chew Tobacco: No; Tobacco Cessation Education Requested by Patient: No Hx Alcohol Use: Yes Alcohol type: hard liquor Hx Substance Use: No Preferred Language: Rwandan Communication Ability: Effective Dining Room Supervisor Required: No Beliefs That Will Affect Care: None Current Living Situation: Alone Other Information That Helps Us Care for You: No Feels Safe at Home: Yes Safety Concerns: Feels Safe At This Time Assistive Devices: None Review of Systems Constitutional: no fever and no chills Respiratory: no dyspnea Cardiovascular: no chest pain Gastrointestinal: + abdominal pain and + nausea; no vomiti ng Genitourinary: no dysuria Psychiatric: no confusion Physical Exam Constitutional: cooperative and comfortable; no acute distress Respiratory: normal respiratory effort and able to speak in complete sentences; no respiratory distress Cardiovascular: Rate/Rhythm: + bradycardic (59) Gastrointestinal (Abdomen): Inspection/Auscultation: + abdominal surgical scar; abdomen not distended Percussion/Palpation: + abdomen tender (LUQ) and abdomen soft; no guarding Psychiatric: Orientation: alert and oriented x 3 Results & Data Vital Signs (Past 12 Hours) Vital Signs Temp Pulse Resp BP Pulse Ox O2 Del Method 06/12/24 11:14 98.1 F 59 L 17 126/82 96 Room Air 06/12/24 07:39 97.7 F 61 19 137/85 98 Room Air 06/12/24 03:38 98.1 F 55 L 18 112/70 97 Room Air Diagnostic Findings [facility], [place] [phone] XRay Report Patient: FIOR TAVAREZ Admit Date: 06/11/24 MR#: [id number] Address1: [address] [place] [address] Acct ID:[id number] Address2: Date: 1980 [facility] Zip: [place] [address] Age: 44 Location: 4W Sex: F Room/Bed: [facility] Att Phy: Kasandra Varela MD Diagnosis: GASTROENTERITIS, ILEUS, HTN URGENCY Shirley Phy: Gio Wiseman DO Service Date: 06/12/24 Fam Phy: Interpreting Phy: Nitish Reaves [facility] Phy: Shiraz Nye MD Ordering Phy: Shiraz Nye MD cc: ~ EXAM: XR KUB/Abdomen 1 view CLINICAL HISTORY: mild ileus, ff up TECHNIQUE: Radiograph of kub/abdomen was acquired. COMPARISON: No FINDINGS: Non-obstructive, non-specific bowel gas pattern. Gaseous distension of bowel loops noted. No significant air fluid levels. No evidence of air under diaphragm. No obvious radio opacity overlying kidneys/ureters/urinary bladder. No obvious organomegaly. Hyperdense content within the urinary bladder shadow, likely excreted contrast. Bony shadows appear unremarkable. Few small surgical holli noted in bilateral paravertebral regions. IMPRESSION: 1. No acute abdominal abnormality. 2. Gaseous distension of bowel loops. No significant air fluid levels. Electronically signed by Nitish Reaves 06-12-2024 08:08 AM Dictated: 06/12/24 [id number] Transcribed: Results CBC w Diff Results: RBC 3.50 M/uL (4.20-5.40) L 06/13/24 WBC 3.95 K/ul (4.8-10.8) L 06/13/24 Hgb 9.6 g/dl (12.0-16.0) L 06/13/24 Hct 30.1 % (37.0-47.0) L 06/13/24 MCV 86.0 fL (80.0-100.0) 06/13/24 MCH 27.4 pg (25.0-34.0) 06/13/24 MCHC 31.9 g/dL (32.0-36.0) L 06/13/24 RDW Standard Deviation 46.9 fL (36.4-46.3) H 06/13/24 RDW Coefficient of Variation 14.9 % (11.5-14.5) H 06/13/24 Plt Count 174 K/uL (130-400) 06/13/24 MPV 10.3 fL (9.4-12.4) 06/13/24 Neutrophils (%) (Auto) 30.3 % 06/12/24 Lymphocytes (%) (Auto) 59.2 % 06/12/24 Monocytes # (Auto) 0.38 K/uL (0.11-0.59) 06/12/24 Eosinophils # (Auto) 0.06 K/uL (0.00-0.50) 06/12/24 Immature Granulocyte % (Auto) 0.0 % 06/12/24 Neutrophils # (Auto) 1.36 K/uL (1.40-6.50) L 06/12/24 Lymphocytes # (Auto) 2.65 K/uL (1.20-3.40) 06/12/24 Monocytes # (Auto) 0.38 K/uL (0.11-0.59) 06/12/24 Eosinophils # (Auto) 0.06 K/uL (0.00-0.50) 06/12/24 Basophils # (Auto) 0.03 K/uL (0.00-0.20) 06/12/24 Immature Granulocyte # (Auto) 0.00 K/uL (0.01-0.20) L 06/12 Red Blood Cell Morphology Unremarkable 06/12/24 PG Care Time/CCT Total # of Minutes Spent Total Time Spent with Patient: Total time spent is greater than 50% in coordination of care (as documented) at patient's floor/unit and/or counseling patient: Coding Level of Care Code 89509 IN/OBS CONSULT LVL 3,45M Diagnoses Ileus K56.7
[2024-06-12] MEDS: LACTATED RINGER'S 1,000 ML IV SCH (18:20)
[2024-06-12 18:43] LABS: A calco-baum cmplx NotReported Not Detected (NotDetected); Bact fragilis Not Reported Not Detected (NotDetected); Blood Culture Id Panel See PCR Comment (NotDetected); C auris Not Reported Not Detected (NotDetected); Calbicans Not Reported Not Detected (NotDetected); Candida glabrata Not Reported Not Detected (NotDetected); Candida krusei Not Reported Not Detected (NotDetected); Cneoformans/gatti Not Reported Not Detected (NotDetected); Cparapsilosis Not Reported Not Detected (NotDetected); E cloacae compx Not Reported Not Detected (NotDetected); Efaecalis Not Reported Not Detected (NotDetected); Efaecium Not Reported Not Detected (NotDetected); Enterobacterales Not Reported Not Detected (NotDetected); Escherichia coli Not Reported Not Detected (NotDetected); H influenzae Not Reported Not Detected (NotDetected); K aerogenes Not Reported Not Detected (NotDetected); Koxytoca Not Reported Not Detected (NotDetected); Kpneumoniae grp Not Reported Not Detected (NotDetected); Lmonocyt Not Reported Not Detected (NotDetected); N meningitidis Not Reported Not Detected (NotDetected); P aeruginosa Not Reported Not Detected (NotDetected); Proteus spp Not Reported Not Detected (NotDetected); Salmonella spp Not Reported Not Detected (NotDetected); Staph lugdunensis Not Reported Not Detected (NotDetected); Staph spp. Not Reported DETECTED (NotDetected); Staphaureus Not Reported Not Detected (NotDetected); Staphepi Not Reported DETECTED (NotDetected); Staphylococcus spp. DETECTED (NotDetected); Stenmaltophilia Not Reported Not Detected (NotDetected); Strep agal(GrpB) Not Reported Not Detected (NotDetected); Strep pneum Not Reported Not Detected (NotDetected); Strep pyog (GrpA) Not Reported Not Detected (NotDetected); Strep spp Not Reported Not Detected (NotDetected); mecAC Resistant Gene Not Detected (NotDetected)
[2024-06-12 18:50] LABS: Staphylococcus epidermidis DETECTED (NotDetected)
[2024-06-13 06:08] LABS: Hematocrit (blood only) 30.1 % (37.0-47.0); Hemoglobin 9.6 g/dl (12.0-16.0); Mean Corpuscular Hemoglobin 27.4 pg (25.0-34.0); Mean Corpuscular Hgb Conc 31.9 g/dL (32.0-36.0); Mean Platelet Volume 10.3 fL (9.4-12.4); Platelet Count 174 K/uL (130-400); RDW Coefficient of Variation 14.9 % (11.5-14.5); RDW Standard Deviation 46.9 fL (36.4-46.3); White Blood Count 3.95 K/ul (4.8-10.8)
[2024-06-13 06:29] LABS: BUN Creatinine Ratio 5.4 (10-20); Calcium 7.6 mg/dl (8.6-10.3); Creatinine Clr Calc Pharmacy 69.4 ml/min; Magnesium 1.8 mg/dl (1.7-2.4); Phosphorus 2.5 mg/dl (2.5-4.9); Potassium 4.2 mmol/L (3.5-5.1)
[2024-06-13] MEDS ORDERED: ACETAMINOPHEN 325 MG TAB PO PRN (07:18)
--- NOTE | 2024-06-13 07:56 | XRay Report ---
EXAM: XR KUB/Abdomen 1 view CLINICAL HISTORY: Followup ileus, rule out obstruction. TECHNIQUE: An X-ray of the abdomen was performed in AP view. COMPARISON: 06/12/2024 FINDINGS: Non-obstructive, non-specific bowel gas pattern. Gaseous distension of bowel loops noted. No significant air-fluid levels. No evidence of air under the diaphragm. No obvious radio opacity overlying kidneys/ureters/urinary bladder. No obvious organomegaly. Bony shadows appear unremarkable. Few small surgical holli noted in bilateral paravertebral regions. IMPRESSION: Non-obstructive bowel gas pattern. No interval changes. Electronically signed by Bryan Sol 06-13-2024 07:53 AM
--- NOTE | 2024-06-13 10:38 | Surgery Progress Note ---
Date of Service June 13, 2024 Assessment & Plan (1) Ileus: Plan: Patient with c/o of nausea, vomiting, and diarrhea that started last Tuesday06/09/24 after eating tuna. Ongoing LUQ abd pain, no n/v since admission KUB from this AM showing non obstructive bowel gas pattern VSS Given hx of gastric sleeve, pt agreeable to an upper endoscopy with Dr Knight Pt has been NPO , continue until after procedure added for UGI today in OR As above. Having persistent epigastric pain. In light of her severe vomiting as well as history of sleeve gastrectomy I have offered an upper endoscopy. She has been NPO. We will proceed today with an EGD. Admission and Anticipated Discharge Date Admission Date: June 11, 2024 Subjective pt reports ongoing LUQ pain no n/v , BM Review of Systems Constitutional: no fever and no chills Respiratory: no dyspnea Cardiovascular: no chest pain Gastrointestinal: + abdominal pain; no nausea and no vomit ing Musculoskeletal: no muscle weakness Physical Exam Constitutional: cooperative and comfortable; no acute distress Respiratory: normal respiratory effort and able to speak in complete sentences; no respiratory distress Cardiovascular: Rate/Rhythm: + bradycardic (55) Gastrointestinal (Abdomen): Inspection/Auscultation: abdomen not distended Percussion/Palpation: + abdomen tender and abdomen soft Psychiatric: Orientation: alert and oriented x 3 Results & Data Vital Signs (Past 12 Hours) Vital Signs Temp Pulse Pulse Resp BP Pulse Ox O2 Del Method 06/13/24 08:42 98.2 F 55 L 18 143/81 H 97 Room Air 06/13/24 02:41 98.1 F 57 L 16 138/81 97 Room Air 06/12/24 23:34 66 06/12/24 22:42 98.2 F 56 L 16 132/79 97 Room Air Results CBC w Diff Results: RBC 3.50 M/uL (4.20-5.40) L 06/13/24 WBC 3.95 K/ul (4.8-10.8) L 06/13/24 Hgb 9.6 g/dl (12.0-16.0) L 06/13/24 Hct 30.1 % (37.0-47.0) L 06/13/24 MCV 86.0 fL (80.0-100.0) 06/13/24 MCH 27.4 pg (25.0-34.0) 06/13/24 MCHC 31.9 g/dL (32.0-36.0) L 06/13/24 RDW Standard Deviation 46.9 fL (36.4-46.3) H 06/13/24 RDW Coefficient of Variation 14.9 % (11.5-14.5) H 06/13/24 Plt Count 174 K/uL (130-400) 06/13/24 MPV 10.3 fL (9.4-12.4) 06/13/24 Neutrophils (%) (Auto) 30.3 % 06/12/24 Lymphocytes (%) (Auto) 59.2 % 06/12/24 Monocytes # (Auto) 0.38 K/uL (0.11-0.59) 06/12/24 Eosinophils # (Auto) 0.06 K/uL (0.00-0.50) 06/12/24 Immature Granulocyte % (Auto) 0.0 % 06/12/24 Neutrophils # (Auto) 1.36 K/uL (1.40-6.50) L 06/12/24 Lymphocytes # (Auto) 2.65 K/uL (1.20-3.40) 06/12/24 Monocytes # (Auto) 0.38 K/uL (0.11-0.59) 06/12/24 Eosinophils # (Auto) 0.06 K/uL (0.00-0.50) 06/12/24 Basophils # (Auto) 0.03 K/uL (0.00-0.20) 06/12/24 Immature Granulocyte # (Auto) 0.00 K/uL (0.01-0.20) L 06/12 Red Blood Cell Morphology Unremarkable 06/12/24 PG Care Time/CCT Total # of Minutes Spent Total Time Spent with Patient: Total time spent is greater than 50% in coordination of care (as documented) at patient's floor/unit and/or counseling patient: Coding Level of Care Code 84908 SUB INP/OBS CARE 04/28MIN Diagnoses Ileus K56.7
[2024-06-13] MEDS ORDERED: PROPOFOL IV EMULSION 10 MG/ML 20 ML VIAL IV ONE (11:13)
[2024-06-13] MEDS ORDERED: LIDOCAINE 2% 2 ML VIAL/AMP(20MG/ML) INFIL ONE (11:13)
[2024-06-13] MEDS ORDERED: ATROPINE SULFATE 0.1 MG/ML 10ML SYR IV PRN (11:24)
[2024-06-13] MEDS ORDERED: HYDROmorphone INJ 1 MG/ML SYRINGE IV PRN (11:24)
[2024-06-13] MEDS ORDERED: PROMETHAZINE HCL 6.25 MG in SODIUM CHLORIDE 0.9% 50 ML IV PRN (11:24)
[2024-06-13] MEDS ORDERED: ONDANSETRON INJ 2 MG/ML 2 ML VIAL IV PRN (11:24)
[2024-06-13] MEDS ORDERED: ePHEDrine sulfate 50 MG/ML AMP IV PRN (11:24)
--- NOTE | 2024-06-13 11:27 | Anesthesiology Consultation ---
Date of Service June 13, 2024 Assessment & Plan Chart Review Chart Review: Acceptable Risk for Surgery Consults Requested none ASA ASA2 Proposed Anesthesia Anesthesia Type: MAC Risk / Benefits Reviewed With: PT / POA / Parent / Guardian, Accepts Plan and Informed Consent Obtained History Surgery Operation Date: 06/13/24 08:15 Proposed Procedures p Esophagogastroduodenoscopy - Michael Knight, DO Height/Weight Height: 5 ft 2 in Weight: 64.3 kg Allergies Allergy/AdvReac Type Severity Reaction Status Date / Time morphine AdvReac Severe Vomiting Unverified 06/11/24 18:04 Medications Home Medications Medication Instructions Recorded Confirmed Last Taken L norgest/E estradiol-E estrad 1 tab PO QAM 06/11/24 06/11/24 Unknown 0.15 mg-30 mcg (84)/10 mcg(7) tabs,3mos (Ashlyna) Active Medications Generic Name Dose Route Start Last Admin Trade Name Freq PRN Reason Stop Dose Admin Hydromorphone HCl 0.5 mg 06/11/24 18:52 06/12/24 01:20 Hydromorphone Inj 0.5 Mg/0.5 Ml Syr IV 06/25/24 18:51 0.5 mg Q4H PRN Administration Severe Pain (Scale 7, 8, 9,10) Piperacillin Sod/Tazobactam Sod 4.5 gm in 100 mls @ 25 mls/hr 06/12/24 00:00 06/13/24 09:36 Zosyn IV 06/22/24 00:00 25 mls/hr Q8H GENTRY Administration Protocol Lactated Ringer's 1,000 mls @ 80 mls/hr 06/12/24 14:45 06/13/24 06:21 Lr IV 06/13/24 19:44 80 mls/hr .[id number] GENTRY Administration Ondansetron HCl 4 mg 06/11/24 20:21 06/12/24 08:45 Ondansetron Inj 2 Mg/Ml 2 Ml Vial IV 07/11/24 20:20 4 mg Q6H PRN Administration Nausea Oxycodone HCl 5 mg 06/12/24 14:37 06/12/24 14:57 Oxycodone Hcl Ir 5 Mg Tab (Immediate Release) PO 06/26/24 14:36 5 mg Q8H PRN Administration Mild-Mod Pain (Scale 1-6) Past Medical History Medical History No significant medical problems borderline htn,dm. s/p gastric sleeve Exercise / Class Metabolic Activity II 4-5 Yardwork/Stairs/Walk up hill Past Anesthesia History No Hx of Anesthesia Complications Social History Smoking Status: Never smoker Do You Dip or Chew Tobacco: No Hx Alcohol Use: Yes Alcohol type: hard liquor alcohol intake frequency: a few times a week Hx Substance Use: No substance use type: does not use Review of Systems ROS Unobtainable: All systems reviewed & are unremarkable except as noted in HPI & below Physical Exam Vital Signs Last Vital Signs Temp 36.8 C 06/13/24 08:42 Pulse 55 L 06/13/24 08:42 Resp 18 06/13/24 08:42 BP 143/81 H 06/13/24 08:42 Pulse Ox 97 06/13/24 08:42 O2 Del Method Room Air 06/13/24 08:42 ENMT Thyromental Distance: > or= 3.5 Finger Breadths Mallampati Class: II Respiratory normal respiratory effort Auscultation: lungs clear to auscultation bilaterally Cardiovascular Rate/Rhythm: regular rate and regular rhythm Psychiatric Orientation: alert and oriented x 3 Testing Laboratory Results 06/13/24 05:48 06/13/24 05:48 Urine Color Dark Yellow 06/11/24 15:57 Urine Appearance Clear (Clear) 06/11/24 15:57 Urine pH 5.5 (4.5-7.5) 06/11/24 15:57 Ur Specific [place] 1.026 (1.000-1.030) 06/11/24 15:57 Urine Protein Trace (Negative) H 06/11/24 15:57 Urine Glucose (UA) Negative (Negative) 06/11/24 15:57 Urine Ketones Trace (Negative) H 06/11/24 15:57 Urine Nitrite Negative (Negative) 06/11/24 15:57 Ur Leukocyte Esterase Negative (Negative) 06/11/24 15:57 Urine WBC (Auto) 0-5 /hpf (0-5) 06/11/24 15:57 Urine RBC (Auto) 0-2 /hpf (0-2) 06/11/24 15:57 U Hyaline Cast (Auto) 3-5 /lpf (0-2) H 06/11/24 15:57 U Epithel Cells (Auto) 6-10 /hpf (0-2) H 06/11/24 15:57 Urine Bacteria (Auto) 1+ (None Seen) H 06/11/24 15:57 06/11/24 15:57 Urine Culture - Final Urine,Clean Catch More than three types of organisms present, all moderate counts mixed probable skin maya. No further identifications or sensitivities to follow. 06/11/24 20:13 Aerobic Blood Culture - Preliminary Blood No growth in Aerobic bottle after 24 hours. Anaerobic Blood Culture - Preliminary Staphylococcus epidermidis 06/11/24 20:13 Aerobic Blood Culture - Preliminary Blood No growth in Aerobic bottle after 24 hours. Anaerobic Blood Culture - Preliminary No growth in Anaerobic bottle after 24 hours.
--- NOTE | 2024-06-13 12:33 | Operative Report ---
PG Post Operative Report Pre & Post Diagnosis Operation Date: 06/13/24 08:15 Pre-Op Diagnosis: Abdominal pain. Post-Op Diagnosis: Normal post gastric sleeve anatomy I identified the patient and participated in the time-out.: Yes Procedure Operation Date: 06/13/24 08:15 Actual Procedures p Esophagogastroduodenoscopy - Michael Knight DO Surgeon Michael Knight, DO Second Language Tutor none Estimated Blood Loss 0 Findings Consistent with Post-Op Diagnosis Specimens none Description of Procedure After informed consent was obtained the patient was taken to the operating room and placed in a left lateral Blum's position. A bite block was placed. IV sedation was administered by anesthesia and titrated to effect. After adequate sedation the gastroscope was lubricated and inserted into the oropharynx without difficulty. Keeping the lumen of view at all times scope was passed down through the esophagus. It was passed into her stomach through the pylorus and the first second and third portions of the duodenum. The scope was slowly withdrawn. Her anatomy was consistent with her history of a gastric sleeve. The staple line looked good. There was no gastritis ulcerations strictures etc. Esophagus looked good in its entire length as well. The stomach was decompressed and the scope was removed. The patient was awakened and transferred recovery in stable condition. I attest to the content of the Intraoperative Record and any orders documented therein. Any exceptions are noted below.
[2024-06-13] MEDS: fentaNYL citrate PF 100 MCG/2 ML VIAL IV PRN (13:02)
--- NOTE | 2024-06-13 13:22 | Hospitalist Progress Note ---
Date of Service June 13, 2024 Assessment & Plan (1) Gastroenteritis: (2) Acute dehydration: (3) Hypertension: Plan: Patient is a 44-year-old female with history of diabetes, hypertension, history of gastric bypass surgery, presenting with nausea, vomiting, diarrhea since Tuesday. She is being managed for the following: Acute gastroenteritis with possible Mild Ileus Acute dehydration Rule out infection Bacteremia: / bottle cx positive so far w/ Staph epidermidis at 24 hour, repeat bl cx 06/13, follow up on final results. Likely from food poisoning Reports improvement in N, V. No BM since presentation, moving gas some. Continues to have LUQ pain, slightly worse today at 4/10. Will get US LUQ. Stool PCR, C. difficile ordered, remains uncollected due to no BM while in here. Pt denies Fever/sore throat/pain or burn w/ passing urine/open wounds Given severity of presentation, pt was started on empiric Zosyn IV, continue Blood cultures pending, 1 of 4 admitting bl cx positive, c/w zosyn, consult ID, repeat bl cx. Gen Sx on board, s/p EGD scope 06/13 - nl post gastric sleeve anatomy. Pt is NPO. Will get LUQ US scan. as needed Dilaudid for pain, as needed antiemetics Hypertensive Urgency likely secondary to pain, nausea. BP has improved. has history of hypertension but not on maintenance medications PRN Hydralazine Chronic medical problems: Prediabetes-not on any medications, f/u w/ PCP for ongoing monitoring. Status post gastric bypass surgery DVT prophylaxis: SCDs, ambulation. Full Code Disposition: lives at home, await ID eval. Gen Sx following for ileus/abd pain. Admission and Anticipated Discharge Date Admission Date: June 11, 2024 Subjective Patient was seen and examined at bedside. Patient was lying in bed, on room air, NAD, resting comfortably. Pt denies N, V, and has not moved bowel after coming to the hospital. Reports moving gas last evening. Pt reports LUQ pain, slightly worse today at 4/10. Pt reports improvement in her "teeth chattering" and chills. Of note, patient reports having sepsis in the past with subtle signs and symptoms such as teeth chattering and hence her blood culture was sent at admission day after she had similar episode in the evening of presentation. Physical Exam Physical Exam: General- oriented x 3, not in distress, speaks in sentences with no effort or accessory muscle use Head- atraumatic Eyes- PERRL, EOMI, anicteric ENT- oropharynx clear moist oral mucosa Neck- supple, no JVD, no adenopathy, no thyromegaly; carotids +2/2, no bruits appreciated Lungs- clear to auscultation bilaterally, no rales/wheezes Heart- normal rate, regular rhythm; no murmur, no gallop, no rub appreciated Abdomen- normal bowel sounds, nondistended, soft, mild tenderness LUQ, no masses or hepatosplenomegaly Extremities- no pretibial edema, no calf tenderness; peripheral pulses intact Neuro- alert, oriented x 3; CN 2-12 grossly intact; motor 5/5 bilaterally;sensation 100% on all extremities; no other gross focal neurologic deficits Skin- warm & dry Results & Data Results & Data Vital Signs (Past 12 Hours) Vital Signs Temp Pulse Pulse Resp BP Pulse Ox O2 Del Method 06/13/24 13:05 60 22 127/77 97 Room Air 06/13/24 12:55 36.7 C 60 24 131/79 99 Room Air 06/13/24 12:45 64 20 137/77 98 Room Air 06/13/24 12:35 36.2 C L 73 16 142/90 H 99 Nasal Cannula 06/13/24 11:42 37 C 56 L 20 149/81 H 100 Room Air 06/13/24 08:42 36.8 C 55 L 18 143/81 H 97 Room Air 06/13/24 02:41 36.7 C 57 L 16 138/81 97 Room Air O2 Flow Rate 06/13/24 13:05 06/13/24 12:55 06/13/24 12:45 06/13/24 12:35 4 06/13/24 11:42 06/13/24 08:42 06/13/24 02:41 (3) Hypertension Hypertension type: unspecified Qualified Code(s): I10 - Essential (primary) hypertension
--- NOTE | 2024-06-13 13:51 | Anesthesiology Progress Note ---
Date of Service June 13, 2024 Anesthesia Post Procedure Vital Signs Vital Signs: Temp Pulse Pulse Pulse Resp BP Pulse Ox 06/13/24 13:37 36.8 C 60 16 136/84 96 06/13/24 13:20 60 20 135/77 98 06/13/24 13:05 60 22 127/77 97 06/13/24 12:55 36.7 C 60 24 131/79 99 06/13/24 12:45 64 20 137/77 98 06/13/24 12:35 36.2 C L 73 16 142/90 H 99 06/13/24 11:42 37 C 56 L 20 149/81 H 100 06/13/24 08:42 36.8 C 55 L 18 143/81 H 97 06/13/24 02:41 36.7 C 57 L 16 138/81 97 06/12/24 23:34 66 06/12/24 22:42 36.8 C 56 L 16 132/79 97 06/12/24 19:38 36.7 C 61 16 177/85 H 98 06/12/24 15:27 36.7 C 59 L 17 166/92 H 97 O2 Del Method O2 Flow Rate 06/13/24 13:37 Room Air 06/13/24 13:20 Room Air 06/13/24 13:05 Room Air 06/13/24 12:55 Room Air 06/13/24 12:45 Room Air 06/13/24 12:35 Nasal Cannula 4 06/13/24 11:42 Room Air 06/13/24 08:42 Room Air 06/13/24 02:41 Room Air 06/12/24 23:34 06/12/24 22:42 Room Air 06/12/24 19:38 Room Air 06/12/24 15:27 Room Air Pain Intensity Abdomen: Pain Intensity: 5 Transfer of Care Handoff Completed per policy Notes Mental Status: alert / awake / arousable and participated in evaluation Nausea / Vomiting: adequately controlled Pain: adequately controlled Airway Patency, RR, SpO2: stable & adequate BP & HR: stable & adequate Hydration State: stable & adequate Anesthetic Complications: no major complications apparent and Pt Satisfied with anesthetic care
--- NOTE | 2024-06-13 15:10 | Ultrasound Report ---
US abdomen limited HISTORY: LUQ pain. COMPARISON: CT scan dated 06/11/2024 FINDINGS: Ultrasound of the spleen and the left kidney is unremarkable. There are no splenic lesions identified. There is no perisplenic fluid collection. Spleen measures 9.8 cm in length and 5.8 cm in AP diameter. Left kidney is sonographically normal measuring 9.9 cm in long axis. No focal renal lesions are depic nahid. There is no left-sided hydronephrosis. IMPRESSION: Negative left upper quadrant ultrasound ACT 112: Negative or not required by law. Electronically signed by: Zoe Acevedo M.D. 06/13/2024 3:08 PM
[2024-06-13] MEDS: hydrALAZINE HCL 20 MG/ML VIAL IV PRN (20:05)
[2024-06-14] MEDS: KETOROLAC TROMETHAMINE 15 MG/ML VIAL IV ONE (00:17)
[2024-06-14] MEDS: KETOROLAC TROMETHAMINE 15 MG/ML VIAL ONE (00:20)
[2024-06-14] MEDS: OPTIRAY 320 100ml IV ONE (00:55)
[2024-06-14] MEDS: FAMOTIDINE 20MG IV PUSH 20 MG/5 ML SYR IV STA (01:19)
[2024-06-14] MEDS: ACETAMINOPHEN 1,000 MG/100 ML VIAL IV PRN (01:20)
--- NOTE | 2024-06-14 03:34 | CT Scan Report ---
EXAM: CT abd pelvis IV con only CLINICAL HISTORY: severe abdominal pain. epigastric region TECHNIQUE: Contrast-enhanced CT of the abdomen and pelvis was performed, with the following protocol: axial images with, and reconstructed coronal and sagittal images. 93 ML OPTIRAY 320 intravenous contrast was administered. One of the following dose reduction techniques was utilized for this exam: Automated exposure control, adjustment of the mA and/or kV according to patient size, and use of iterative reconstruction. DLP: 476.28 COMPARISON: CT of the abdomen and pelvis 06/11/2024 FINDINGS: Abdomen: Liver: Normal in size, shape, and density. No focal lesions, cysts, or masses were identified. A small hypodense focus is seen at the anterior subcapsular aspect of the left hepatic lobe (normal findings representing hepatic pseudolesion). Hepatic vasculature and biliary ducts are unremarkable. Gallbladder and Biliary System: The gallbladder is not visualized, with evidence of cholecystectomy clips. The common bile duct appears prominent status post cholecystectomy. Pancreas: Pancreatic head, body, and tail are visualized and appear normal in size and density. No pancreatic masses or calcifications were noted. The pancreatic duct is not dilated. Spleen: Normal in size, shape, and density. No splenic lesions or masses were identified. Appendix: The appendix is normal in size without [place] appendiceal fat stranding, and without an appendicolith. No evidence of appendiceal abscess or perforation. Kidneys and Adrenal Glands: Both kidneys are normal in size, shape, and position. Cortical thickness is within normal limits. No hydronephrosis. Adrenal glands are unremarkable with no evidence of masses or hyperplasia. Pelvis: Urinary Bladder: The urinary bladder shows contour and wall thickness. No intraluminal lesions identified. Bulky appearance of the uterus, to be correlated with menstrual cycle history. No adnexal lesions. Rectum and Sigmoid Colon: Normal wall thickness and no evidence of mass. Peritoneal and Retroperitoneal Structures: Minimal free fluid is seen at the pelvis (unchanged). No lymphadenopathy was noted. Bowel: Surgical sutures are seen at the stomach (mostly sleeve operation), no evidence of nearby fluid collections or pneumoperitoneum. The visualized bowel loops are normal in caliber and appearance. No evidence of bowel obstruction or wall thickening. Bones and Soft Tissues: Pelvic bones and soft tissues are unremarkable. No fractures or abnormal masses were identified. Basal chest scans: Minimal posterior pleural reaction, likely sequel to positional congestion. IMPRESSION: 1. No evidence of acute intra-abdominal pathology. 2. The common bile duct appears prominent status post cholecystectomy. 3. Surgical sutures seen at the stomach (likely gastric sleeve operation) (unchanged). 4. Minimal free pelvic fluid (unchanged). Electronically signed by Bryan Sol 06-14-2024 03:33 AM
[2024-06-14 05:22] LABS: Hemoglobin 9.8 g/dl (12.0-16.0); Mean Corpuscular Hemoglobin 27.6 pg (25.0-34.0); Mean Corpuscular Hgb Conc 32.7 g/dL (32.0-36.0); Mean Corpuscular Volume 84.5 fL (80.0-100.0); Mean Platelet Volume 10.3 fL (9.4-12.4); Platelet Count 187 K/uL (130-400); RDW Coefficient of Variation 14.6 % (11.5-14.5); RDW Standard Deviation 45.4 fL (36.4-46.3); Red Blood Count 3.55 M/uL (4.20-5.40); White Blood Count 4.28 K/ul (4.8-10.8)
[2024-06-14 05:32] LABS: BUN Creatinine Ratio 5.4 (10-20); Calcium 7.8 mg/dl (8.6-10.3); Creatinine Clr Calc Pharmacy 87.2 ml/min; Magnesium 1.8 mg/dl (1.7-2.4); Potassium 3.7 mmol/L (3.5-5.1)
[2024-06-14] MEDS: IBUPROFEN 600 MG TAB PO PRN (05:56)
[2024-06-14 06:01] LABS: Basophils # (auto) 0.04 K/uL (0.00-0.20); Basophils % (auto) 0.9 %; Eosinophils # (auto) 0.06 K/uL (0.00-0.50); Eosinophils % (auto) 1.4 %; Lymphocytes # (auto) 2.21 K/uL (1.20-3.40); Lymphocytes % (auto) 51.6 %; Monocytes # (auto) 0.35 K/uL (0.11-0.59); Monocytes % (auto) 8.2 %; Neutrophils # (auto) 1.62 K/uL (1.40-6.50); Neutrophils % (auto) 37.9 %; RBC Morphology Unremarkable
[2024-06-14] MEDS: FAMOTIDINE 20MG IV PUSH 20 MG/5 ML SYR IV SCH (09:48)
--- NOTE | 2024-06-14 11:12 | Gastrointestinal Consultation ---
Date of Consultation June 14, 2024 Assessment & Plan (1) Gastroenteritis: 44 year old female with history of diabetes, hypertension, gastric stapling, CCY admitted w/ nausea/vomiting and diarrhea, suspected gastroenteritis. Diarrhea and vomiting have since resolved, however, she has persistent upper abd pain, severe at times. She is s/p EGD yesterday w/ Dr. Knight which was reported as largely unremarkably. Repeat CT scan earlier this AM w/o any acute pathology. DDX discussed including gastroenteritis, post-infectious IBS vs other. Establish a gentle bowel regimen (Miralax 1 capful daily). Trial a scheduled antispasmodic (Bentyl 10 mg three times daily). Trial a low FODMAPs diet as tolerated. Can attempt to obtain stool PCR w/ next BM. I spent a total of 60 minutes on the date of service in review of patient's record, and previously obtained information in person and appropriate medical visit, discussion and education of plan, with patient and/or caregiver, placing orders for tests/referral/procedures as medically necessary and documentation of pertinent clinical information in patient's medical records for their visit today. Supervising Physician Co-Signing Physician Notes I personally saw and examined the patient. I have reviewed the chart and agree with the documentation provided by the CONTROLS ENGINEER including discussion about the assessment, treatment and plan. Briefly, 44 year old female with history of diabetes, hypertension, gastric stapling, CCY admitted w/ nausea/vomiting and diarrhea, suspected food poisoning. She notes shortly after eating raw tuna - she developed urgent loose stools. Numerous episodes. The following morning, developed nausea and abd pain. Diarrhea resolved, vomiting resolved, pain persisted. Stool studies were ordered but do not appear to be resulted as no BM. Pain has been intermittent. always located in LUQ and epigastric region. EGD by Dr. Knight was normal. She continues to have persistent abdominal pain despite 2 CT scans which show just a mild ileus as she is on narcotics. 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 I would treat her supportively with dicyclomine and gentle MiraLAX to see if we can have her poop. We spent a long time explaining the pathophysiology and tried to reassure the patient that she will slowly get better. Supportive care and liquid diet today. History of Present Illness Reason for Consultation: LUQ pain Requesting Physician: Afshin Lopez MD Attending Physician: Afshin Lopez MD History of Present Illness 44 year old female with history of diabetes, hypertension, gastric stapling, CCY admitted w/ nausea/vomiting and diarrhea, suspected food poisoning. She notes shortly after eating raw tuna - she developed urgent loose stools. Numerous episodes. The following morning, developed nausea and abd pain. Diarrhea resolved, vomiting resolved, pain persisted. Stool studies were ordered but do not appear to be resulted as no BM. Pain has been intermittent. always located in LUQ and epigastric region. Can be triggers by any attempted PO intake. Can be dull and cramping or severe at times. When pain occurs, no other associated symptoms. No fever, chills, CP, SOB. No one sick w/ similar symptoms. No tobacco ETOH is small volume, infrequent No marijuana, THC or other illicit drugs No NSAIDs EGD 2024 w/ Dr. Knight: Her anatomy was consistent with her history of a gastric sleeve. The staple line looked good. There was no gastritis ulcerations strictures etc. Esophagus looked good in its entire length as well. HGB 9.8 Tbili 0.4 AST 13 ALT 7 ALKP 23 Lipase 47 CTAP 2024: No evidence of acute intra-abdominal pathology. The common bile duct appears prominent status post cholecystectomy. Surgical sutures seen at the stomach (likely gastric sleeve operation) (unchanged). Minimal free pelvic fluid (unchanged). ABD US 2024: Negative left upper quadrant ultrasound CTAP 2024: Small amount of free pelvic fluid, which may be physiologic Mildly thickened and heterogeneous endometrium. A pelvic ultrasound could be considered for further evaluation Possible mild ileus Allergies Allergy/AdvReac Type Severity Reaction Status Date / Time morphine AdvReac Severe Vomiting Verified 06/13/24 11:42 Home Medications Medication Instructions Recorded Confirmed Type L norgest/E estradiol-E estrad 1 tab PO QAM 06/11/24 06/11/24 History 0.15 mg-30 mcg (84)/10 mcg(7) tabs,3mos (Ashlyna) Patient History Medical History (Updated 06/13/24 @ 11:41 by Orin Moura RN) Malignant hyperthermia due to anesthesia Pt reports high fever in recovery room and unexpected extended hospital stay with previous surgery. Per pt, was told that is was a reaction to anesthesia. Suspected MH per Dr. Gio Petty. No significant medical problems Surgical History (Updated 06/13/24 @ 15:28 by Chelle Barron RN) H/O esophagogastroduodenoscopy (06/13/24) Esophagogastroduodenoscopy - Michael Knight DO H/O: Hx of cholecystectomy Hx of breast reduction, elective H/O gastric sleeve Social History Smoking Status: Never smoker Second Hand Exposure: No; Do You Dip or Chew Tobacco: No; Tobacco Cessation Education Requested by Patient: No Hx Alcohol Use: Yes Alcohol type: hard liquor Hx Substance Use: No Preferred Language: Samoan Communication Ability: Effective Sweeping Compound Blender Required: No Beliefs That Will Affect Care: None Current Living Situation: Alone Other Information That Helps Us Care for You: No Feels Safe at Home: Yes Safety Concerns: Feels Safe At This Time Assistive Devices: None Review of Systems Review of Systems: All other findings negative except as noted in HPI. Physical Exam Constitutional: WD/WN, vitals as above Respiratory: normal respiratory effort, lungs clear to auscultation Cardiovascular: Rate/Rhythm: regular rate Gastrointestinal (Abdomen): normal bowel sounds, soft, nontender, no hepatosplenomegaly Skin: no rashes, warm and dry Results & Data Vital Signs (Past 12 Hours) Vital Signs Temp Pulse Pulse Resp BP Pulse Ox O2 Del Method 06/14/24 07:47 54 L 06/14/24 07:29 97.9 F 59 L 18 157/79 H 97 Room Air 06/14/24 04:00 98.2 F 55 L 18 134/72 95 Room Air 06/13/24 23:20 98.1 F 58 L 18 188/91 H 98 Room Air Laboratory Results 06/14/24 06/13/24 Range/Units 04:41 11:38 WBC 4.28 L (4.8-10.8) K/ul RBC 3.55 L (4.20-5.40) M/uL Hgb 9.8 L (12.0-16.0) g/dl Hct 30.0 L (37.0-47.0) % MCV 84.5 (80.0-100.0) fL MCH 27.6 (25.0-34.0) pg MCHC 32.7 (32.0-36.0) g/dL RDW Std Deviation 45.4 (36.4-46.3) fL RDW Coeff of Wilson 14.6 H (11.5-14.5) % Plt Count 187 (130-400) K/uL MPV 10.3 (9.4-12.4) fL Immature Gran % (Auto) 0.0 % Neut % (Auto) 37.9 % Lymph % (Auto) 51.6 % [place] % (Auto) 8.2 % Eos % (Auto) 1.4 % Baso % (Auto) 0.9 % Neut # (Auto) 1.62 (1.40-6.50) K/uL Lymph # (Auto) 2.21 (1.20-3.40) K/uL Chester # (Auto) 0.35 (0.11-0.59) K/uL Eos # (Auto) 0.06 (0.00-0.50) K/uL Baso # (Auto) 0.04 (0.00-0.20) K/uL Immature Gran # (Auto) 0.00 L (0.01-0.20) K/uL RBC Morphology Unremarkable Sodium 133 L (136-145) mmol/L Potassium 3.7 (3.5-5.1) mmol/L Chloride 106 (98-107) mmol/L Carbon Dioxide 20 L (21-32) mmol/L Anion Gap 7 (3-11) BUN 4 L (6-23) mg/dl Creatinine 0.74 (0.6-1.2) mg/dl Est Cr Clr Drug Dosing 87.2 ml/min eGFR 103.53 BUN/Creatinine Ratio 5.4 L (10-20) Glucose 71 (70-99(Fasting)) mg/dl Lactate 0.6 (0.4-2.0) mmol/L Calcium 7.8 L (8.6-10.3) mg/dl Magnesium 1.8 (1.7-2.4) mg/dl POC Ur Test NEG (NEG) PG Care Time/CCT Total # of Minutes Spent Total Time Spent with Patient: Total time spent is greater than 50% in coordination of care (as documented) at patient's floor/unit and/or counseling patient: Coding Level of Care Code 95229 IN/OBS CONSULT LVL 4,60M Diagnoses Gastroenteritis K52.9
--- NOTE | 2024-06-14 11:26 | Surgery Progress Note ---
Date of Service June 14, 2024 Assessment & Plan (1) Ileus: Plan: Patient admitted with gastroenteritis 06/11/24, no n/v since admission with c/o ongoing abd pain is POD [address] Knight pt reports pain in LUQ at rest 2/10 , with palpation /10. Had two episodes overnight of stabbing pain, describes it as a "garcia digging in her abdomen" First episode began shortly after ingestion of flip nacho , discussed trying non carbonated fluids this AM and see how she fares. May advance diet as tolerated CT scan last night without intra abdominal concerns abd u/s yesterday 06/13 without abdominal concerns KUB 06/13 showing non obstructive bowel gas pattern EGD yesterday unremarkable VSS, WBC 4.2, hemoglobin stable at present abd pain is of unknown etiology. Hospitalist present in room this AM discussed GI consult , agree to get their input. Possible pain management consult, pending GI input. At present general surgery has nothing further to offer, and will follow from the peripheral. Call with question/concerns Discussed above with Dr Knight and he is in agreement (2) Gastroenteritis: Admission and Anticipated Discharge Date Admission Date: June 11, 2024 Subjective pt reports two episodes of increasing abd pain last night. describes pain "as a garcia digging in abdomen" First episode began shortly after ingestion of flip nacho, second throughout night was ordered another CT scan last night no n/v , denies flatus or BM Review of Systems Constitutional: no fever and no chills Respiratory: no dyspnea Cardiovascular: no chest pain Gastrointestinal: + abdominal pain; no nausea and no vomit ing Musculoskeletal: no muscle weakness Physical Exam Constitutional: cooperative and comfortable; no acute distress Respiratory: normal respiratory effort; no respiratory distress Cardiovascular: Rate/Rhythm: + bradycardic (54) Gastrointestinal (Abdomen): Inspection/Auscultation: abdomen not distended Percussion/Palpation: + abdomen tender and abdomen soft Psychiatric: Orientation: alert and oriented x 3 Affect: + tearful affect Results & Data Vital Signs (Past 12 Hours) Vital Signs Temp Pulse Pulse Resp BP Pulse Ox O2 Del Method 06/14/24 07:47 54 L 06/14/24 07:29 97.9 F 59 L 18 157/79 H 97 Room Air 06/14/24 04:00 98.2 F 55 L 18 134/72 95 Room Air 06/13/24 23:20 98.1 F 58 L 18 188/91 H 98 Room Air Diagnostic Findings [place], [place] [phone] CT Scan Report Patient: FIOR TAVAREZ Admit Date: 06/11/24 MR#: [id number] Address1: [facility] Acct ID:[id number] Address2: Date: 1980 [facility] Zip: [place] [address] Age: 44 Location: 4W Sex: F [facility] Phy: Kasandra Varela MD Diagnosis: GASTROENTERITIS, ILEUS, HTN URGENCY Shirley Phy: Gio Wiseman DO Service Date: 06/14/24 Fam Phy: Interpreting Phy: Bryan Sol MDAdmit Phy: Shiraz Nye MD Ordering Phy: Glen Jain MD cc: ~ EXAM: CT abd pelvis IV con only CLINICAL HISTORY: severe abdominal pain. epigastric region TECHNIQUE: Contrast-enhanced CT of the abdomen and pelvis was performed, with the following protocol: axial images with, and reconstructed coronal and sagittal images. 93 ML OPTIRAY 320 intravenous contrast was administered. One of the following dose reduction techniques was utilized for this exam: Automated exposure control, adjustment of the mA and/or kV according to patient size, and use of iterative reconstruction. DLP: 476.28 COMPARISON: CT of the abdomen and pelvis 06/11/2024 FINDINGS: Abdomen: Liver: Normal in size, shape, and density. No focal lesions, cysts, or masses were identified. A small hypodense focus is seen at the anterior subcapsular aspect of the left hepatic lobe (normal findings representing hepatic pseudolesion). Hepatic vasculature and biliary ducts are unremarkable. Gallbladder and Biliary System: The gallbladder is not visualized, with evidence of cholecystectomy clips. The common bile duct appears prominent status post cholecystectomy. Pancreas: Pancreatic head, body, and tail are visualized and appear normal in size and density. No pancreatic masses or calcifications were noted. The pancreatic duct is not dilated. Spleen: Normal in size, shape, and density. No splenic lesions or masses were identified. Appendix: The appendix is normal in size without [place] appendiceal fat stranding, and without an appendicolith. No evidence of appendiceal abscess or perforation. Kidneys and Adrenal Glands: Both kidneys are normal in size, shape, and position. Cortical thickness is within normal limits. No hydronephrosis. Adrenal glands are unremarkable with no evidence of masses or hyperplasia. Pelvis: Urinary Bladder: The urinary bladder shows contour and wall thickness. No intraluminal lesions identified. Bulky appearance of the uterus, to be correlated with menstrual cycle history. No adnexal lesions. Rectum and Sigmoid Colon: Normal wall thickness and no evidence of mass. Peritoneal and Retroperitoneal Structures: Minimal free fluid is seen at the pelvis (unchanged). No lymphadenopathy was noted. Bowel: Surgical sutures are seen at the stomach (mostly sleeve operation), no evidence of nearby fluid collections or pneumoperitoneum. The visualized bowel loops are normal in caliber and appearance. No evidence of bowel obstruction or wall thickening. Bones and Soft Tissues: Pelvic bones and soft tissues are unremarkable. No fractures or abnormal masses were identified. Basal chest scans: Minimal posterior pleural reaction, likely sequel to positional congestion. IMPRESSION: 1. No evidence of acute intra-abdominal pathology. 2. The common bile duct appears prominent status post cholecystectomy. 3. Surgical sutures seen at the stomach (likely gastric sleeve operation) (unchanged). 4. Minimal free pelvic fluid (unchanged). Electronically signed by Bryan Sol 06-14-2024 03:33 AM Dictated: 06/14/24 0107 Transcribed: [place], [place] [phone] Ultrasound Report Patient: FIOR TAVAREZ Admit Date: 06/11/24 MR#: [id number] Address1: [address] [place] [address] Acct ID:[id number] Address2: Date: 1980 [facility] Zip: [place] [address] Age: 44 Location: 4W Sex: F Room/Bed: [facility] Att Phy: Kasandra Varela MD Diagnosis: GASTROENTERITIS, ILEUS, HTN URGENCY Shirley Phy: Gio Wiseman DO Service Date: 06/13/24 Fam Phy: Interpreting Phy: Zoe Acevedo MDAdmit Phy: Shiraz Nye MD Ordering Phy: Kasandra Varela MD cc: ~ US abdomen limited HISTORY: LUQ pain. COMPARISON: CT scan dated 06/11/2024 FINDINGS: Ultrasound of the spleen and the left kidney is unremarkable. There are no splenic lesions identified. There is no perisplenic fluid collection. Spleen measures 9.8 cm in length and 5.8 cm in AP diameter. Left kidney is sonographically normal measuring 9.9 cm in long axis. No focal renal lesions are depicted. There is no left-sided hydronephrosis. IMPRESSION: Negative left upper quadrant ultrasound ACT 112: Negative or not required by law. Electronically signed by: Zoe Acevedo M.D. 06/13/2024 3:08 PM Dictated: 06/13/24 150 Transcribed: 06/13/24 150 Results CBC w Diff Results: RBC 3.55 M/uL (4.20-5.40) L 06/14/24 WBC 4.28 K/ul (4.8-10.8) L 06/14/24 Hgb 9.8 g/dl (12.0-16.0) L 06/14/24 Hct 30.0 % (37.0-47.0) L 06/14/24 MCV 84.5 fL (80.0-100.0) 06/14/24 MCH 27.6 pg (25.0-34.0) 06/14/24 MCHC 32.7 g/dL (32.0-36.0) 06/14/24 RDW Standard Deviation 45.4 fL (36.4-46.3) 06/14/24 RDW Coefficient of Variation 14.6 % (11.5-14.5) H 06/14/24 Plt Count 187 K/uL (130-400) 06/14/24 MPV 10.3 fL (9.4-12.4) 06/14/24 Neutrophils (%) (Auto) 37.9 % 06/14/24 Lymphocytes (%) (Auto) 51.6 % 06/14/24 Monocytes # (Auto) 0.35 K/uL (0.11-0.59) 06/14/24 Eosinophils # (Auto) 0.06 K/uL (0.00-0.50) 06/14/24 Immature Granulocyte % (Auto) 0.0 % 06/14/24 Neutrophils # (Auto) 1.62 K/uL (1.40-6.50) 06/14/24 Lymphocytes # (Auto) 2.21 K/uL (1.20-3.40) 06/14/24 Monocytes # (Auto) 0.35 K/uL (0.11-0.59) 06/14/24 Eosinophils # (Auto) 0.06 K/uL (0.00-0.50) 06/14/24 Basophils # (Auto) 0.04 K/uL (0.00-0.20) 06/14/24 Immature Granulocyte # (Auto) 0.00 K/uL (0.01-0.20) L 06/14 Red Blood Cell Morphology Unremarkable 06/14/24 PG Care Time/CCT Total # of Minutes Spent Total Time Spent with Patient: Total time spent is greater than 50% in coordination of care (as documented) at patient's floor/unit and/or counseling patient: Coding Level of Care Code 46470 SUB INP/OBS CARE 04/28MIN Diagnoses Ileus K56.7 Gastroenteritis K52.9
[2024-06-14] MEDS: DICYCLOMINE HCL 10 MG CAP PO PRN (12:47)
--- NOTE | 2024-06-14 14:59 | Hospitalist Progress Note ---
Date of Service June 14, 2024 Assessment & Plan (1) Gastroenteritis: (2) Acute dehydration: (3) Hypertension: Plan: Patient is a 44-year-old female with history of diabetes, hypertension, history of gastric bypass surgery, presenting with nausea, vomiting, diarrhea since Tuesday. She is being managed for the following: Acute gastroenteritis with possible Mild Ileus Possible post infectious IBS Patient presented with abdominal cramps, nausea vomiting and diarrhea for 3 days after eating raw tuna. CT abdomen/pelvis on admission and on 06/14 did not show any acute finding. CT abdomen pelvis on 06/11 showed possible mild ileus Patient underwent EGD; no significant findings. Blood culture on admission 04/07 staph epidermis Repeat blood cx NGTD Evaluated by GI as well as surgery; pain likely thought secondary to postinfectious IBS. Continue on Bentyl 3 times daily and pain control. Plan to monitor overnight and possible DC in a.m. Elevated blood pressure likely secondary to pain, nausea. BP has improved. has history of hypertension but not on maintenance medications Chronic medical problems: Prediabetes-not on any medications, f/u w/ PCP for ongoing monitoring. Status post gastric bypass surgery DVT prophylaxis: SCDs, ambulation. Full Code Disposition: lives at home,Monitor for next 24 hours; possible DC in a.m. Time spent evaluating patient, direct bedside care, chart review, placing orders, interpretation of diagnostic studies, discussion with consultants, patient, and family members, as well as other required patient management ac tivities is 50 minutes Please note the above document was generated using voice recognition software. It may contain grammatical, syntax or spelling errors. Any formal questions or concerns about the content, text or information contained within the body of this dictation should be directly addressed to the provider for clarification Admission and Anticipated Discharge Date Admission Date: June 11, 2024 Subjective Patient seen and examined at bedside. Overnight, patient had episode of severe abdominal pain requiring IV pain meds. Pain has improved today. Review of Systems Review of Systems: All systems reviewed & are unremarkable except as noted in Subjective Physical Exam Physical Exam: Constitutional: WD/WN, vitals as above, NAD, sitting up in bed, pleasant, conversing easily Chest: wheeze, rales, rhonchi. Normal insp/exp effort, no accessory muscle use Cardiovascular: RRR, no murmur, no edema Vessels: no JVD or carotid bruit Chest: normal inspection of chest Abdomen: Left upper quadrant tenderness present. Skin: no rashes, warm and dry normal turgor Neurologic: PERRL, EOMI, accommodation nl, no face palsy, no dysarthria CN's II- XI intact bilaterally and moves all extremities Results & Data Results & Data Vital Signs (Past 12 Hours) Vital Signs Temp Pulse Pulse Resp BP Pulse Ox O2 Del Method 06/14/24 11:53 36.8 C 58 L 18 142/82 H 98 Room Air 06/14/24 07:47 54 L 06/14/24 07:29 36.6 C 59 L 18 157/79 H 97 Room Air 06/14/24 04:00 36.8 C 55 L 18 134/72 95 Room Air (3) Hypertension Hypertension type: unspecified Qualified Code(s): I10 - Essential (primary) hypertension
[2024-06-14] MEDS: DICYCLOMINE HCL 10 MG CAP PO SCH (15:53)
--- NOTE | 2024-06-14 16:14 | Infectious Disease Consult ---
<Statement entered by Jose Alvarenga II, DO - 06/15/24 12:28> I saw and evaluated the patient n 06/14/2024. I have reviewed the trainee note and agree. Date of Service June 14, 2024 Telehealth Information I performed this visit using a real-time telehealth connection between my loc ation and the patients location ([facility]). After connecting through interactive tele-video, patient was identified by name and date of and/or wristband check.Patient (or authorized healthcare regional sales representative) was informed that this was a telemedicine visit and it was being conducted confidentially over secure lines. My office door was closed and no one else was present in the room with me.Patient (or authorized healthcare regional sales representative) provided consent to proceed with the visit, expressed an understanding of privacy and security of the telemedicine visit, and gave permission to have a hospital regional sales representative in the room in order to assist with the visit and to conduct portions of the visit, as needed. I informed the patient (or authorized healthcare regional sales representative) that I reviewed their record and presented the opportunity for them to ask any questions regarding the visit today. The patient agreed to participate. Assessment & Plan (1) Gastroenteritis: (2) Blood culture positive for microorganism: Plan Patient with likely gastroenteritis and possibly bacterial in nature. Although it has been significantly prolonged, in his not unheard of however it does seem like she is improving as of today. Patient with 1/4 positive blood cultures with Staphylococcus epidermidis without any evidence of immunosuppression, central venous catheters as well as soft tissue infections. It is highly unlikely that this organism would be the cause of her gastroenteritis. Would treat this growth as contaminated and not clinically relevant. In terms of her acute gastrointestinal diarrhea, apart from a few specific entities, there is recommendations to withhold antibiotics in acute bloody and nonbloody diarrhea as there are other etiologies that can cause exacerbated poor clinical outcomes with administration of antibiotics. would also recommend discontinuation of all anti-infectives at this time and continue to treat supportively. - Staphylococcus epidermidis is contamination - discontinue all anti-infectives and treat gastroenteritis supportively Appreciate consultation, please do not hesitate to reach out for any further questions or concerns. Andrew Franklin MD PGY5 Infectious Disease History of Present Illness History of Present Illness 44-year-old female visited the hospital approximately 7 days ago due to abdominal pain, cramping, diarrhea, vomiting for proximally 5 days' duration after eating raw seafood, specifically tuna. She was unable to tolerate p.o.. She was initiated on broad-spectrum antibiotics, continued to have diarrheal episodes however last episode was yesterday, she is not tolerating oral diet does of yet, she is tolerating liquids but still has anorexia. X-ray did show ileus, underwent EGD with largely benign findings. Blood cultures were drawn and 1/4 positive for Staphylococcus epidermidis. Patient does not have any indwelling central venous catheters. She denies any skin rashes/ulcerations. Allergies Allergy/AdvReac Type Severity Reaction Status Date / Time morphine AdvReac Severe Vomiting Verified 06/13/24 11:42 Home Medications Medication Instructions Recorded Confirmed Type L norgest/E estradiol-E estrad 1 tab PO QAM 06/11/24 06/11/24 History 0.15 mg-30 mcg (84)/10 mcg(7) tabs,3mos (Ashlyna) Patient History Medical History (Updated 06/14/24 @ 16:16 by Andrew Franklin MD) Malignant hyperthermia due to anesthesia Pt reports high fever in recovery room and unexpected extended hospital stay with previous surgery. Per pt, was told that is was a reaction to anesthesia. Suspected MH per Dr. Gio Petty. No significant medical problems Surgical History (Updated 06/13/24 @ 15:28 by Chelle Barron RN) H/O esophagogastroduodenoscopy (06/13/24) Esophagogastroduodenoscopy - Michael Knight DO H/O: Hx of cholecystectomy Hx of breast reduction, elective H/O gastric sleeve Social History Smoking Status: Never smoker Second Hand Exposure: No; Do You Dip or Chew Tobacco: No; Tobacco Cessation Education Requested by Patient: No Hx Alcohol Use: Yes Alcohol type: hard liquor Hx Substance Use: No Preferred Language: Bengali Communication Ability: Effective Hair Assistant Required: No Beliefs That Will Affect Care: None Current Living Situation: Alone Other Information That Helps Us Care for You: No Feels Safe at Home: Yes Safety Concerns: Feels Safe At This Time Assistive Devices: None Review of Systems CONSTITUTIONAL: Denies weight loss, fever and chills. HEENT: Denies changes in vision and hearing. RESPIRATORY: Denies SOB and cough. CV: Denies palpitations and CP. GI: Denies abdominal pain, nausea, vomiting and diarrhea. : Denies dysuria and urinary frequency. MSK: Denies myalgia and joint pain. SKIN: Denies rash and pruritus. NEUROLOGICAL: Denies headache and syncope PSYCHIATRIC: Denies recent changes in mood. Denies anxiety and depression. Physical Exam GENERAL: Appears as stated age. No acute distress. NEUROLOGIC: No focal neurological deficits. Cranial nerves grossly intact. Results & Data Vital Signs (Past 12 Hours) Vital Signs Temp Pulse Pulse Resp BP Pulse Ox O2 Del Method 06/14/24 15:43 55 L 06/14/24 11:53 36.8 C 58 L 18 142/82 H 98 Room Air 06/14/24 07:47 54 L 06/14/24 07:29 36.6 C 59 L 18 157/79 H 97 Room Air Laboratory Results 06/13/24 08:15 Aerobic Blood Culture - Preliminary Blood No growth in Aerobic bottle after 24 hours. Anaerobic Blood Culture - Preliminary No growth in Anaerobic bottle after 24 hours. 06/13/24 08:07 Aerobic Blood Culture - Preliminary Blood No growth in Aerobic bottle after 24 hours. Anaerobic Blood Culture - Preliminary No growth in Anaerobic bottle after 24 hours. 06/11/24 20:13 Aerobic Blood Culture - Preliminary Blood No growth in Aerobic bottle after 48 hours. Anaerobic Blood Culture - Preliminary No growth in Anaerobic bottle after 48 hours. 06/11/24 20:13 Aerobic Blood Culture - Preliminary Blood No growth in Aerobic bottle after 48 hours. Anaerobic Blood Culture - Preliminary Staphylococcus epidermidis 06/14/24 04:41 WBC 4.28 L RBC 3.55 L Hgb 9.8 L Hct 30.0 L MCV 84.5 MCH 27.6 MCHC 32.7 RDW Std Deviation 45.4 RDW Coeff of Wilson 14.6 H Plt Count 187 MPV 10.3 Immature Gran % (Auto) 0.0 Neut % (Auto) 37.9 Lymph % (Auto) 51.6 [place] % (Auto) 8.2 Eos % (Auto) 1.4 Baso % (Auto) 0.9 Neut # (Auto) 1.62 Lymph # (Auto) 2.21 [place] # (Auto) 0.35 Eos # (Auto) 0.06 Baso # (Auto) 0.04 Immature Gran # (Auto) 0.00 L RBC Morphology Unremarkable Sodium 133 L Potassium 3.7 Chloride 106 Carbon Dioxide 20 L Anion Gap 7 BUN 4 L Creatinine 0.74 Est Cr Clr Drug Dosing 87.2 eGFR 103.53 BUN/Creatinine Ratio 5.4 L Glucose 71 Lactate 0.6 Calcium 7.8 L Magnesium 1.8 Diagnostic Findings Abdomen/Pelvis CT 06/14/24 00:38 EXAM: CT abd pelvis IV con only CLINICAL HISTORY: severe abdominal pain. epigastric region TECHNIQUE: Contrast-enhanced CT of the abdomen and pelvis was performed, with the following protocol: axial images with, and reconstructed coronal and sagittal images. 93 ML OPTIRAY 320 intravenous contrast was administered. One of the following dose reduction techniques was utilized for this exam: Automated exposure control, adjustment of the mA and/or kV according to patient size, and use of iterative reconstruction. DLP: 476.28 COMPARISON: CT of the abdomen and pelvis 06/11/2024 FINDINGS: Abdomen: Liver: Normal in size, shape, and density. No focal lesions, cysts, or masses were identified. A small hypodense focus is seen at the anterior subcapsular aspect of the left hepatic lobe (normal findings representing hepatic pseudolesion). Hepatic vasculature and biliary ducts are unremarkable. Gallbladder and Biliary System: The gallbladder is not visualized, with evidence of cholecystectomy clips. The common bile duct appears prominent status post cholecystectomy. Pancreas: Pancreatic head, body, and tail are visualized and appear normal in size and density. No pancreatic masses or calcifications were noted. The pancreatic duct is not dilated. Spleen: Normal in size, shape, and density. No splenic lesions or masses were identified. Appendix: The appendix is normal in size without [place] appendiceal fat stranding, and without an appendicolith. No evidence of appendiceal abscess or perforation. Kidneys and Adrenal Glands: Both kidneys are normal in size, shape, and position. Cortical thickness is within normal limits. No hydronephrosis. Adrenal glands are unremarkable with no evidence of masses or hyperplasia. Pelvis: Urinary Bladder: The urinary bladder shows contour and wall thickness. No intraluminal lesions identified. Bulky appearance of the uterus, to be correlated with menstrual cycle history. No adnexal lesions. Rectum and Sigmoid Colon: Normal wall thickness and no evidence of mass. Peritoneal and Retroperitoneal Structures: Minimal free fluid is seen at the pelvis (unchanged). No lymphadenopathy was noted. Bowel: Surgical sutures are seen at the stomach (mostly sleeve operation), no evidence of nearby fluid collections or pneumoperitoneum. The visualized bowel loops are normal in caliber and appearance. No evidence of bowel obstruction or wall thickening. Bones and Soft Tissues: Pelvic bones and soft tissues are unremarkable. No fractures or abnormal masses were identified. Basal chest scans: Minimal posterior pleural reaction, likely sequel to positional congestion. IMPRESSION: 1. No evidence of acute intra-abdominal pathology. 2. The common bile duct appears prominent status post cholecystectomy. 3. Surgical sutures seen at the stomach (likely gastric sleeve operation) (unchanged). 4. Minimal free pelvic fluid (unchanged). Electronically signed by Bryan Sol 06-14-2024 03:33 AM
[2024-06-15 06:38] LABS: Hematocrit (blood only) 31.4 % (37.0-47.0); Hemoglobin 10.5 g/dl (12.0-16.0); Mean Corpuscular Hemoglobin 28.2 pg (25.0-34.0); Mean Corpuscular Hgb Conc 33.4 g/dL (32.0-36.0); Mean Corpuscular Volume 84.4 fL (80.0-100.0); Mean Platelet Volume 10.3 fL (9.4-12.4); Platelet Count 203 K/uL (130-400); RDW Coefficient of Variation 14.7 % (11.5-14.5); RDW Standard Deviation 45.3 fL (36.4-46.3); Red Blood Count 3.72 M/uL (4.20-5.40); White Blood Count 3.61 K/ul (4.8-10.8)
[2024-06-15 06:58] LABS: BUN Creatinine Ratio 6.4 (10-20); Calcium 7.9 mg/dl (8.6-10.3); Creatinine Clr Calc Pharmacy 80.8 ml/min; Potassium 3.8 mmol/L (3.5-5.1)
[2024-06-15 07:26] LABS: Acanthocytes 1+; Basophils # (auto) 0.03 K/uL (0.00-0.20); Basophils % (auto) 0.8 %; Eosinophils # (auto) 0.08 K/uL (0.00-0.50); Eosinophils % (auto) 2.2 %; Lymphocytes # (auto) 1.97 K/uL (1.20-3.40); Lymphocytes % (auto) 54.6 %; Monocytes # (auto) 0.39 K/uL (0.11-0.59); Monocytes % (auto) 10.8 %; Neutrophils # (auto) 1.14 K/uL (1.40-6.50); Neutrophils % (auto) 31.6 %; Ovalocytes 1+; Polychromasia 1+
[2024-06-15 07:27] VITALS: RESP 18; TEMP 98.1
--- NOTE | 2024-06-15 10:18 | Gastroenterology Progress Note ---
Date of Service June 15, 2024 Assessment & Plan (1) Gastroenteritis: Plan: 44 year old female with history of diabetes, hypertension, gastric stapling, [facility] admitted w/ nausea/vomiting and diarrhea, suspected gastroenteritis. Diarrhea and vomiting have since resolved, however, she has persistent upper abd pain, severe at times. She is s/p EGD yesterday w/ Dr. Knight which was reported as largely unremarkably. Repeat CT scan earlier this AM w/o any acute p athology. DDX discussed including gastroenteritis, post-infectious IBS vs other. She has had great improvement with trial of an antispasmodic. Encouraged scheduled Bentyl 10 mg three times daily. Discussed side effects/precautions. She verbalized understanding. May use Miralax 1 capful daily as needed. Low FODMAPs diet as tolerated. Will sign off. I spent a total of 40 minutes on the date of service in review of patient's record, and previously obtained information in person and appropriate medical visit, discussion and education of plan, with patient and/or caregiver, placing orders for tests/referral/procedures as medically necessary and documentation of pertinent clinical information in patient's medical records for their visit today. Admission and Anticipated Discharge Date Admission Date: June 11, 2024 Subjective Feeling well. About 90% improved. Suggests Bentyl seemed to be helpful. Review of Systems Review of Systems: All other findings negative except as noted in HPI. Physical Exam Constitutional: WD/WN, vitals as above Respiratory: normal respiratory effort, lungs clear to auscultation Cardiovascular: Rate/Rhythm: regular rate Gastrointestinal (Abdomen): normal bowel sounds, soft, nontender, no hepatosplenomegaly Skin: no rashes, warm and dry Results & Data Results & Data Vital Signs (Past 12 Hours) Vital Signs Temp Pulse Pulse Resp BP BP Pulse Ox 06/15/24 07:26 98.1 F 56 L 18 138/74 97 06/15/24 07:16 50 L 06/15/24 02:52 97.7 F 57 L 16 129/67 98 06/14/24 23:07 98.4 F 71 16 139/74 97 O2 Del Method 06/15/24 07:26 Room Air 06/15/24 07:16 06/15/24 02:52 Room Air 06/14/24 23:07 Room Air PG Care Time/CCT Total # of Minutes Spent Total Time Spent with Patient: Total time spent is greater than 50% in coordination of care (as documented) at patient's floor/unit and/or counseling patient: Coding Level of Care Code 63906 SUB INP/OBS CARE 2MIN Diagnoses Gastroenteritis K52.9
[2024-06-15 12:15] VITALS: BP 139/76; PULSE 54; O2SAT 98
--- NOTE | 2024-06-15 15:56 | Discharge Summary ---
Date of Service June 15, 2024 Admission HPI Per Admitting Provider Patient is a 44-year-old female with history of diabetes, hypertension, history of gastric bypass surgery, presenting with nausea, vomiting, diarrhea since Tuesday. Last Tuesday evening, the patient had some raw tuna for dinner and 2 to 3 hours later experienced multiple episodes of vomiting and nonbloody diarrhea associated with generalized abdominal cramping. Symptoms continued through the weekend, with up to 3-5 episodes of vomiting and diarrhea per day. She also experienced chills, and a poor oral intake due to severe nausea. She could not even keep fluids down. At the ER, blood pressure 180/100, heart rate 66, respiratory rate 18, afebrile, 99% room air. CT abdomen pelvis showing mild ileus. She was given IV fluid boluses, Dilaudid, Zofran, Phenergan, still having some nausea and abdominal pain. On exam, patient seen resting in bed, not in distress. States nausea starting to improve, but still having some abdominal discomfort. No headache, dizziness, chest pain, shortness of breath, or any other symptoms. Admission Exam Per Admitting Provider General- oriented x 3, not in distress, speaks in sentences with no effort or accessory muscle use Head- atraumatic Eyes- PERRL, EOMI, anicteric ENT- oropharynx clear (+) dry oral mucosa Neck- supple, no JVD, no adenopathy, no thyromegaly; carotids +2/2, no bruits appreciated Lungs- clear to auscultation bilaterally, no rales/wheezes Heart- normal rate, regular rhythm; no murmur, no gallop, no rub appreciated Abdomen- normal bowel sounds, nondistended, soft, mild tenderness LUQ, no masses or hepatosplenomegaly Extremities- no pretibial edema, no calf tenderness; peripheral pulses intact Neuro- alert, oriented x 3; CN 2-12 grossly intact; motor 5/5 bilaterally ;sensation 100% on all extremities; no other gross focal neurologic deficits Skin- warm & dry Principal Diagnosis Acute gastroenteritis Postinfectious IBS Discharge Exam Constitutional: WD/WN, vitals as above, NAD, sitting up in bed, pleasant, conversing easily Chest: wheeze, rales, rhonchi. Normal insp/exp effort, no accessory muscle use Cardiovascular: RRR, no murmur, no edema Vessels: no JVD or carotid bruit Chest: normal inspection of chest Abdomen: Mild left upper quadrant tenderness; significantly improved from yesterday. Skin: no rashes, warm and dry normal turgor Neurologic: PERRL, EOMI, accommodation nl, no face palsy, no dysarthria CN's II- XI intact bilaterally and moves all extremities Discharge Data Allergies Allergy/AdvReac Type Severity Reaction Status Date / Time morphine AdvReac Severe Vomiting Verified 06/13/24 11:42 Consultations 06/11/24 18:45 ED Decision to Admit Stat 06/12/24 14:38 Consult General Surgery Routine 06/14/24 10:18 Consult Gastroenterology Routine Procedures Performed Operation Date: 06/13/24 08:15 Actual Procedures p Esophagogastroduodenoscopy(Not Applicable) - Michael Knight, Ordered Studies 06/11/24 17:06 CT abd pelvis IV con only Stat 06/13/24 13:19 US abdomen limited Routine 06/14/24 00:38 CT Abd and Pelvis [CT abd pelvis IV con only] Stat Hospital Course (1) Gastroenteritis: (2) Acute dehydration: (3) Hypertension: Plan Patient is a 44-year-old female with history of diabetes, hypertension, history of gastric bypass surgery, presenting with nausea, vomiting, diarrhea since Tuesday. She was managed for the following during the hospitalization: Acute gastroenteritis Possible post infectious IBS Patient presented with abdominal cramps, nausea vomiting and diarrhea for 3 days after eating raw tuna. CT abdomen/pelvis on admission and on 06/14 did not show any acute finding. CT abdomen pelvis on 06/11 showed possible mild ileus Patient underwent EGD; no significant findings. Blood culture on admission 04/07 staph epidermis Repeat blood cx NGTD Evaluated by GI as well as surgery; pain likely thought secondary to postinfectious IBS. Patient was treated with Bentyl 3 times daily which significantly improved the pain. Patient was discharged home with instructions to follow-up with her PCP. Please note the above document was generated using voice recognition software. It may contain grammatical, syntax or spelling errors. Any formal questions or concerns about the content, text or information contained within the body of this dictation should be directly addressed to the provider for clarification Total Time Total Time Spent Total Time Spent (In Minutes): 45 Total Time Includes: Examination of the Patient, Discharge Planning, Medication Reconciliation, Communication With Other Providers and Other Discharge Plan Discharge Items Patient Disposition: Home - Self-Care Reason For Visit: GASTROENTERITIS, ILEUS, HTN URGENCY Discharge Diagnosis: Acute gastroenteritis Postinfectious IBD Condition on Discharge: Fair Activity: Resume your previous activity Non-emergency contact: Primary Care Provider Call non-emergency contact if: you have any medication questions and your symptoms worsen Follow-up/Referrals: Gio Wiseman, DO [Primary Care Provider] - (Date & Time 06/21/2024 11:20 AM Provider: Flores Morris PA-C [facility] ) Diet: Low Fiber Addtl Attending Provider Instructions: You were admitted to the hospital with abdominal pain. You underwent evaluation by general surgery and GI. The likely cause for the abdominal pain is postinfectious irritable bowel syndrome. You are prescribed Bentyl to be taken 3 times a day for next 7 days. Also take MiraLAX 1 capful daily as needed for constipation. An appointment has been set up with your primary care doctor for follow-up. Pending Studies at Discharge: No Stand-Alone Forms: My [facility], Work/School Release, Smoking Cessation Medications and DC Order Prescriptions: New dicyclomine 10 mg Capsule 10 mg PO Q8H 7 Days Qty: 21 0RF Continued L norgest/e.estradiol-e.estrad [Ashlyna] 0.15 mg-30 mcg (84)/10 mcg (7) tablets,dose pack,3 month 1 tab PO QAM Discharge Orders: Discharge Order (Routine); Ordered 06/15/24 Ordered By: Afshin Lopez Admission Data Admit Date/Time: 06/11/24 18:52 Attending Provider: Afshin Lopez Admit Provider: Shiraz Nye Primary Care Provider: Gio Wiseman Other Providers: Shiraz Nye; Michael Knight; Chucky Colon Other Interventions: Discharge Summary Assessment (RN) Last Done: 06/15/24 12:06
== END 2024-06-15 13:09 | disposition home or self-care (01) | DRG 392 ==
LOC: ED 13:45 → SUATTDRO 18:52 → 4W 18:52